=== PATIENT | male | born 1960 | race Hispanic/Latino ===

== ENCOUNTER 2018-12-02 11:26 | Inpatient (IN) | payer OTHER ==
--- NOTE | 2018-12-02 11:47 | Emergency Department Report ---
Chief Complaint: Dyspnea/Respdistress Stated Complaint: COPD/SWELLING/PAIN Time Seen by Provider: 12/02/18 11:45 - HPI History of Present Illness: states her doctor sent her here to be admitted. states he called ER "Dr Rios" co cp rad to neck see EMR for hx pt is complaining about a nurse with no EDWARD VSS MSE completed MSE screening note: Focused history and physical exam performed. Due to findings the following was ordered: ED Disposition for MSE Condition: Stable
--- NOTE | 2018-12-02 12:26 | XRay Report ---
ROUTINE CHEST, TWO VIEWS: HISTORY: chest pain. Moderate cardiomegaly and mild pulmonary venous congestion are identified which appear relatively stable since 03/07/17. No evidence for consolidation, large pleural effusion or pneumothorax. The bony structures are grossly intact. IMPRESSION: Cardiomegaly and pulmonary venous congestion. No overwhelming change since 03/07/17.
--- NOTE | 2018-12-02 12:41 | Emergency Department Report ---
ED General Adult HPI - General Chief complaint: Dyspnea/Respdistress Stated complaint: COPD/SWELLING/PAIN Time Seen by Provider: 12/02/18 11:45 Source: patient, RN notes reviewed, old records reviewed Mode of arrival: Wheelchair Limitations: No Limitations - History of Present Illness Initial comments: This is a 58-year-old gentleman. Primary care Dr.: Dr Santiago Does not have a local process improvement specialist. Past medical history: Obesity, diabetes, renal insufficiency, permanent atrial fibrillation, on systemic anticoagulation; xarelto This is a pleasant 58-year-old gentleman who is not known to this provider previously. The patient presents to the emergency room with a complaint of unintentional lower extremity swelling, scrotal swelling, shortness of breath, "I think I'm fluid overloaded." He endorses an unintentional 40 pound weight gain within the past month or so. The patient is a truck loader, however he endorses compliance with his systemic anticoagulation. He denies headache, neck pain, chest pain, abdominal pain. He believes that he is constipated. He also reports that his symptoms got worse approximately 2-3 weeks ago, after receiving an intragluteal injection, on the right side, for "low testosterone." -: Gradual Location: left, right, lower extremity Severity scale (0 -10): 6 Consistency: constant Improves with: rest Worsens with: movement Associated Symptoms: shortness of breath. denies: chest pain - Related Data Home Medications Medication Instructions Recorded Confirmed Last Taken Albuterol Sulfate [Ventolin HFA] 2 puff INHALATION PRN 01/16/17 03/07/17 01/15/17 AtorvaSTATin [Lipitor] 10 mg PO HS 01/16/17 03/07/17 01/15/17 Rivaroxaban [Xarelto] 20 mg PO QDAY 01/16/17 03/07/17 01/15/17 Zolpidem [Ambien] 10 mg PO QHS 01/16/17 03/07/17 01/15/17 amLODIPine [Norvasc] 1 tab PO DAILY 01/16/17 03/07/17 Unknown Spironolactone [Aldactone] 50 mg PO QDAY 03/07/17 03/07/17 Unknown Previous Rx's Medication Instructions Recorded Last Taken Type Detemir (Nf) [Levemir (Nf)] 12 units SUB-Q QHS #30 units 01/18/17 Unknown Rx Carvedilol [Coreg] 3.125 mg PO BID #60 tablet 03/08/17 Unknown Rx HYDROcodone/APAP 10-325 [[place] 2 tab PO TID PRN #14 tablet 03/08/17 Unknown Rx 10-325 mg TAB] Nicotine [Habitrol] 21 mg TD QDAY #14 patch 03/08/17 Unknown Rx Torsemide [Demadex] 50 mg PO QDAY 30 Days tablet 03/09/17 Unknown Rx Allergies Allergy/AdvReac Type Severity Reaction Status Date / Time Penicillins Allergy Rash Verified 01/16/17 08:30 ED Review of Systems ROS: Stated complaint: COPD/SWELLING/PAIN Other details as noted in HPI Constitutional: denies: fever Eyes: denies: vision change ENT: denies: epistaxis Respiratory: shortness of breath Cardiovascular: dyspnea on exertion, edema. denies: chest pain, orthopnea Gastrointestinal: constipation. denies: abdominal pain Skin: lesions (chronic skin lesion secondary to long-term anticoagulant use) Neurological: weakness Psychiatric: denies: anxiety ED Past Medical Hx - Past Medical History Hx Hypertension: Yes Hx Congestive Heart Failure: Yes Hx Diabetes: Yes Hx Arthritis: Yes Hx COPD: Yes Additional medical history: Back pain, Kidney insufficiency, Home oxygen, A fib - Surgical History Past Surgical History?: No - Social History Smoking Status: Unknown if ever smoked Substance Use Type: None - Medications Home Medications: Home Medications Medication Instructions Recorded Confirmed Last Taken Type Albuterol Sulfate [Ventolin HFA] 2 puff INHALATION PRN 01/16/17 03/07/17 01/15/17 History AtorvaSTATin [Lipitor] 10 mg PO HS 01/16/17 03/07/17 01/15/17 History Rivaroxaban [Xarelto] 20 mg PO QDAY 01/16/17 03/07/17 01/15/17 History Zolpidem [Ambien] 10 mg PO QHS 01/16/17 03/07/17 01/15/17 History amLODIPine [Norvasc] 1 tab PO DAILY 01/16/17 03/07/17 Unknown History Detemir (Nf) [Levemir (Nf)] 12 units SUB-Q QHS #30 units 01/18/17 03/07/17 Unknown Rx Spironolactone [Aldactone] 50 mg PO QDAY 03/07/17 03/07/17 Unknown History Carvedilol [Coreg] 3.125 mg PO BID #60 tablet 03/08/17 Unknown Rx HYDROcodone/APAP 10-325 [[place] 2 tab PO TID PRN #14 tablet 03/08/17 Unknown Rx 10-325 mg TAB] Nicotine [Habitrol] 21 mg TD QDAY #14 patch 03/08/17 Unknown Rx Torsemide [Demadex] 50 mg PO QDAY 30 Days tablet 03/09/17 Unknown Rx ED Physical Exam - General Limitations: No Limitations General appearance: alert, in no apparent distress, obese - Head Head exam: Present: atraumatic, normocephalic - Eye Eye exam: Present: normal appearance, EOMI. Absent: nystagmus - ENT ENT exam: Present: normal exam, normal orophraynx, mucous membranes moist, normal external ear exam - Neck Neck exam: Present: normal inspection, full ROM. Absent: tenderness, meningismus - Respiratory Respiratory exam: Present: rales, rhonchi. Absent: respiratory distress - Cardiovascular Cardiovascular Exam: Present: tachycardia, irregular rhythm, normal heart sounds. Absent: systolic murmur, diastolic murmur, rubs, gallop - GI/Abdominal GI/Abdominal exam: Present: soft. Absent: distended, tenderness, guarding, rebound, rigid, pulsatile mass - Rectal Rectal exam: Present: deferred - exam: Present: scrotal swelling - Extremities Exam Extremities exam: Present: normal inspection (chronic discoloration noted), pedal edema (3+ pulses noted in the lower extremities), other (2+ pulses noted in the bilateral upper, lower extremities. Compartments soft. No long bony tenderness. The pelvis is stable.). Absent: calf tenderness - Back Exam Back exam: Present: normal inspection, full ROM. Absent: tenderness, CVA tenderness (R), paraspinal tenderness, vertebral tenderness - Neurological Exam Neurological exam: Present: alert, oriented X3, CN II-XII intact, normal gait, other (Extraocular movements intact. Tongue midline. No facial droop. Facial sensation intact to light touch in the V1, V2, V3 distribution bilaterally. 5 and 5 strength in 4 extremities.. Sensation is intact to light touch in 4 extremities.). Absent: motor sensory deficit - Psychiatric Psychiatric exam: Present: normal affect, normal mood - Skin Skin exam: Present: warm, dry, intact, normal color. Absent: rash ED Course Vital Signs 12/02/18 12/02/18 12/02/18 11:58 12:51 13:00 Temperature 98.2 F Pulse Rate 103 H 73 Respiratory 24 20 Rate Blood Pressure 135/70 115/57 O2 Sat by Pulse 81 L 93 93 Oximetry ED Medical Decision Making - Lab Data Result diagrams: 12/02/18 12:45 12/02/18 12:45 Vital Signs 12/02/18 12/02/18 12/02/18 11:58 12:51 13:00 Temperature 98.2 F Pulse Rate 103 H 73 Respiratory 24 20 Rate Blood Pressure 135/70 115/57 O2 Sat by Pulse 81 L 93 93 Oximetry Lab Results 12/02/18 12/02/18 12/02/18 Range/Units 12:35 12:45 12:45 WBC 5.9 (4.5-11.0) K/mm3 RBC 6.50 H (3.65-5.03) M/mm3 Hgb 16.9 H (11.8-15.2) gm/dl Hct 54.6 H (35.5-45.6) % MCV 84 (84-94) fl MCH 26 L (28-32) pg MCHC 31 L (32-34) % RDW 19.5 H (13.2-15.2) % Plt Count 152 (140-440) K/mm3 Lymph % (Auto) 20.1 (13.4-35.0) % [place] % (Auto) 14.0 H (0.0-7.3) % Eos % (Auto) 1.3 (0.0-4.3) % Baso % (Auto) 0.9 (0.0-1.8) % Lymph # 1.2 (1.2-5.4) K/mm3 [place] # 0.8 (0.0-0.8) K/mm3 Eos # 0.1 (0.0-0.4) K/mm3 Baso # 0.1 (0.0-0.1) K/mm3 Seg Neutrophils % 63.7 (40.0-70.0) % Seg Neutrophils # 3.7 (1.8-7.7) K/mm3 PT (12.2-14.9) Sec. INR (0.87-1.13) Sodium 136 L (137-145) mmol/L Potassium 5.1 H (3.6-5.0) mmol/L Chloride 94.0 L (98-107) mmol/L Carbon Dioxide 29 (22-30) mmol/L Anion Gap 18 mmol/L BUN 57 H (9-20) mg/dL Creatinine 1.9 H (0.8-1.5) mg/dL Estimated GFR 37 ml/min BUN/Creatinine Ratio 30 % Glucose 199 H (75-100) mg/dL POC Glucose (70-105) Calcium 8.8 (8.4-10.2) mg/dL Magnesium 2.20 (1.7-2.3) mg/dL Total Bilirubin 0.60 (0.1-1.2) mg/dL AST 19 (5-40) units/L ALT 13 (7-56) units/L Alkaline Phosphatase 63 (35-129) units/L Troponin T < 0.010 (0.00-0.029) ng/mL NT-Pro-B Natriuret Pep 3763 H (0-900) pg/mL Total Protein 6.1 L (6.3-8.2) g/dL Albumin 3.1 L (3.9-5) g/dL Albumin/Globulin Ratio 1.0 % Urine Color Yellow (Yellow) Urine Turbidity Clear (Clear) Urine pH 5.0 (5.0-7.0) Ur Specific [place] 1.013 (1.003-1.030) Urine Protein >2000 mg dl (Negative) mg/dL Urine Glucose (UA) Neg (Negative) mg/dL Urine Ketones Neg (Negative) mg/dL Urine Blood Neg (Negative) Urine Nitrite Neg (Negative) Urine Bilirubin Neg (Negative) Urine Urobilinogen 2.0 (<2.0) mg/dL Ur Leukocyte Esterase Neg (Negative) Urine WBC (Auto) 1.0 (0.0-6.0) /HPF Urine RBC (Auto) 3.0 (0.0-6.0) /HPF U Epithel Cells (Auto) < 1.0 (0-13.0) /HPF Urine Mucus Few /HPF 12/02/18 12/02/18 Range/Units 12:45 13:35 WBC (4.5-11.0) K/mm3 RBC (3.65-5.03) M/mm3 Hgb (11.8-15.2) gm/dl Hct (35.5-45.6) % MCV (84-94) fl MCH (28-32) pg MCHC (32-34) % RDW (13.2-15.2) % Plt Count (140-440) K/mm3 Lymph % (Auto) (13.4-35.0) % [place] % (Auto) (0.0-7.3) % Eos % (Auto) (0.0-4.3) % Baso % (Auto) (0.0-1.8) % Lymph # (1.2-5.4) K/mm3 [place] # (0.0-0.8) K/mm3 Eos # (0.0-0.4) K/mm3 Baso # (0.0-0.1) K/mm3 Seg Neutrophils % (40.0-70.0) % Seg Neutrophils # (1.8-7.7) K/mm3 PT 14.2 (12.2-14.9) Sec. INR 1.04 (0.87-1.13) Sodium (137-145) mmol/L Potassium (3.6-5.0) mmol/L Chloride (98-107) mmol/L Carbon Dioxide (22-30) mmol/L Anion Gap mmol/L BUN (9-20) mg/dL Creatinine (0.8-1.5) mg/dL Estimated GFR ml/min BUN/Creatinine Ratio % Glucose (75-100) mg/dL POC Glucose 186 H (70-105) Calcium (8.4-10.2) mg/dL Magnesium (1.7-2.3) mg/dL Total Bilirubin (0.1-1.2) mg/dL AST (5-40) units/L ALT (7-56) units/L Alkaline Phosphatase (35-129) units/L Troponin T (0.00-0.029) ng/mL NT-Pro-B Natriuret Pep (0-900) pg/mL Total Protein (6.3-8.2) g/dL Albumin (3.9-5) g/dL Albumin/Globulin Ratio % Urine Color (Yellow) Urine Turbidity (Clear) Urine pH (5.0-7.0) Ur Specific [place] (1.003-1.030) Urine Protein (Negative) mg/dL Urine Glucose (UA) (Negative) mg/dL Urine Ketones (Negative) mg/dL Urine Blood (Negative) Urine Nitrite (Negative) Urine Bilirubin (Negative) Urine Urobilinogen (<2.0) mg/dL Ur Leukocyte Esterase (Negative) Urine WBC (Auto) (0.0-6.0) /HPF Urine RBC (Auto) (0.0-6.0) /HPF U Epithel Cells (Auto) (0-13.0) /HPF Urine Mucus /HPF - EKG Data -: EKG Interpreted by Me Rate: tachycardia - EKG Data 12/02/18 13:35 Normal axis, atrial fibrillation, normal intervals, low voltage, motion artifact, not consistent with ST elevation myocardial infarction. - Radiology Data Radiology results: pending, report reviewed, image reviewed interpreted by me: X-ray of the chest shows pulmonary vascular congestion - Medical Decision Making Differential diagnosis, including but not limited to: Cardiorenal syndrome, congestive heart failure, fluid overload Assessment and plan: 38-year-old gentleman with history and physical suggestive of congestive heart failure exacerbation, and fluid overload. While I am talking to the patient, he is saturating at 90-92% on supplemental oxygen. He is on systemic anticoagulation, and endorses no pulmonary embolus or DVT risk factors. He will be treated with supplemental oxygen, supportive care, and aggressive IV diuresis. I have recommended diet last somewhat occasions to the patient, an aggressive weight loss. He is amenable to hospitalization. Hospital physician, Dr. Sumner has graciously accepted the patient to the medical service for decompensated congestive heart failure. Critical Care Time: Yes Critical care time in (mins) excluding proc time.: 35 Critical care attestation.: If time is entered above; I have spent that time in minutes in the direct care o f this critically ill patient, excluding procedure time. ED Disposition Clinical Impression: Chronic atrial fibrillation, Permanent atrial fibrillation, O2 dependent, Anticoagulant long-term use, Morbid obesity, Acute exacerbation of CHF (congestive heart failure) Disposition: OP ADMIT IP TO THIS HOSP Is pt being admited?: Yes Condition: Good Referrals: PRIMARY CARE, [Referring] - 3-5 Days
[2018-12-02 12:59] LABS: Basophils # (Auto) 0.1 K/mm3 (0.0-0.1); Basophils % (Auto) 0.9 % (0.0-1.8); Eosinophils # (Auto) 0.1 K/mm3 (0.0-0.4); Eosinophils % (Auto) 1.3 % (0.0-4.3); Lymphocytes # (Auto) 1.2 K/mm3 (1.2-5.4); Lymphocytes % (Auto) 20.1 % (13.4-35.0); Mean Corpuscular HGB Conc 31 % (32-34); Mean Corpuscular Hemoglobin 26 pg (28-32); Mean Corpuscular Volume 84 fl (84-94); Monocytes # (Auto) 0.8 K/mm3 (0.0-0.8); Platelet Count 152 K/mm3 (140-440); Red Cell Distribution Width 19.5 % (13.2-15.2)
[2018-12-02 13:05] LABS: Hematocrit 54.6 % (35.5-45.6); Hemoglobin 16.9 gm/dl (11.8-15.2)
[2018-12-02 13:14] LABS: INR 1.04 (0.87-1.13)
[2018-12-02 13:22] LABS: Bilirubin,Urine NEG (Negative); Blood,Urine NEG (Negative); Color,Urine Yellow (Yellow); Mucus,Urine FEW /HPF; Protein,Urine >2000 mg dL mg/dL (Negative)
[2018-12-02 13:27] LABS: Alanine Aminotransferase 13 units/L (7-56); Albumin 3.1 g/dL (3.9-5); BUN/Creatinine Ratio 30; Blood Urea Nitrogen 57 mg/dL (9-20); Calcium 8.8 mg/dL (8.4-10.2); Hemolysis Index 54
[2018-12-02] MEDS ORDERED: LASIX IV ONE (13:31)
--- NOTE | 2018-12-02 13:33 | History and Physical Report ---
History of Present Illness Chief complaint: I feel bloated, short of breath and im constipated too. History of present illness: 58 YO Male with MO, DM, Renal Failure, Atrial Fib on Therapeutic Anticoatulation(Xarelto), CHF, Nicotine Dependence presents to ED for evaluation. Pt states that he has experienced shortness of breath over the past 1 month, with worsening symptoms over the past 2 weeks. Pt acknowledges 40lbs weight gain over the past 1 month, dypsnea on exertion, dypsnea at rest, leg edema, Orthopnea/PND, decreased exercise tolerance, as well as shortness of breath. Pt also acknowledge constipation over the past 4 days. Pt transported to [facility] by private vehicle. Pt seen and evalauted in ED and found to have symptoms consistent with CHF Decompensation as well as Renal failure. Pt denies fever, chills, chest pain, palpitation, abdominal pain, hematochezia, prolonged travel/immobility, unilateral leg swelling, calf pain, dysuria, frequency, individual/family history of DVT/PE/Blood Clotting Disorders, focal weakness, dysarthria. Pt admitted to telemetry and initiated on CHF protocol. Cardiology consulted in ED. Nephrology consulted in ED. Admission on 03/07/17 reviewed. All listed medication reconciled at time of admission. Past History Past Medical History: atrial fib, diabetes, heart failure, renal failure Past Surgical History: No surgical history, Other (reviewed) Social history: single, smoking. denies: alcohol abuse, prescription drug abuse Family history: hypertension Medications and Allergies Allergies Allergy/AdvReac Type Severity Reaction Status Date / Time Penicillins Allergy Rash Verified 01/16/17 08:30 Home Medications Medication Instructions Recorded Confirmed Last Taken Type AtorvaSTATin [Lipitor] 10 mg PO HS 01/16/17 12/02/18 01/15/17 History Rivaroxaban [Xarelto] 20 mg PO QDAY 01/16/17 12/02/18 01/15/17 History Carvedilol [Coreg] 3.125 mg PO BID #60 tablet 03/08/17 12/02/18 Unknown Rx Digoxin [Digox] 250 mcg PO DAILY 12/02/18 12/02/18 Unknown History Insulin Detemir [Levemir VIAL] 20 unit SQ QHS 12/02/18 12/02/18 Unknown History Ipratropium/Albuterol Sulfate 1 spray IH QID 12/02/18 12/02/18 Unknown History [Combivent Respimat] Lispro Insulin [Humalog] 8 unit SQ AC 12/02/18 12/02/18 Unknown History Rivaroxaban [Xarelto] 20 mg PO QDAY 12/02/18 12/02/18 Unknown History Spironolactone [Aldactone] 25 mg PO QDAY 12/02/18 12/02/18 Unknown History Torsemide [Demadex] 20 mg PO DAILY 12/02/18 12/02/18 Unknown History metOLazone [Metolazone] 5 mg PO DAILY 12/02/18 12/02/18 Unknown History predniSONE [Deltasone] 20 mg PO QDAY 12/02/18 12/02/18 Unknown History Review of Systems Constitutional: weight gain, no weight loss, no fever, no chills, no sweats, no night sweats Ears, nose, mouth and throat: no ear pain, no ear discharge, no tinnitis, no decreased hearing, no nose pain Cardiovascular: orthopnea, edema, shortness of breath, dyspnea on exertion, paroxysmal nocturnal dyspnea, leg edema, decreased exercise tolerance, no chest pain Respiratory: no cough, no cough with sputum, no excessive sputum Gastrointestinal: constipation, no abdominal pain, no nausea, no vomiting, no di arrhea Genitourinary Male: no dysuria, no hematuria, no flank pain, no urinary frequency, no urinary hesitancy Rectal: no pain, no incontinence, no bleeding Musculoskeletal: no neck stiffness, no neck pain, no shooting arm pain, no arm numbness/tingling, no low back pain, no shooting leg pain, no redness of joints Integumentary: no rash, no pruritis, no redness, no sores, no wounds Neurological: no head injury, no transient paralysis, no paralysis, no weakness, no parathesias, no tremors Psychiatric: no anxiety, no memory loss, no change in appetite, no change in libido, no disorientation Endocrine: no cold intolerance, no heat intolerance, no polyphagia, no excessive thirst, no polydipsia, no polyuria Hematologic/Lymphatic: no easy bruising, no easy bleeding, no lymphadenopathy Allergic/Immunologic: no urticaria, no allergic rhinitis, no anaphylaxis Exam - Constitutional Vitals: Temp Pulse Resp BP Pulse Ox 98.2 F 73 20 115/57 93 12/02/18 11:58 12/02/18 13:00 12/02/18 13:00 12/02/18 13:00 12/02/18 13:00 General appearance: Present: mild distress, obese - EENT Eyes: Present: PERRL ENT: hearing intact, clear oral mucosa - Neck Neck: Present: supple, normal ROM - Respiratory Respiratory effort: labored Respiratory: bilateral: diminished, rhonchi - Cardiovascular Rhythm: irregularly irregular Heart Sounds: Present: S1 & S2. Absent: rub, click - Extremities Extremity abnormal: edema Peripheral Pulses: within normal limits - Abdominal General gastrointestinal: Present: soft, non-tender, non-distended, normal bowel sounds Male genitourinary: Present: normal - Integumentary Integumentary: Present: clear, warm, dry - Musculoskeletal Musculoskeletal: gait normal, strength equal bilaterally - Psychiatric Psychiatric: appropriate mood/affect, intact judgment & insight - Neurologic Neurologic: CNII-XII intact, moves all extremities Results - Labs CBC & Chem 7: 12/02/18 12:45 12/02/18 12:45 Labs: Abnormal lab results 12/02/18 12/02/18 12/02/18 Range/Units 12:45 12:45 13:35 RBC 6.50 H (3.65-5.03) M/mm3 Hgb 16.9 H (11.8-15.2) gm/dl Hct 54.6 H (35.5-45.6) % MCH 26 L (28-32) pg MCHC 31 L (32-34) % RDW 19.5 H (13.2-15.2) % [place] % (Auto) 14.0 H (0.0-7.3) % Sodium 136 L (137-145) mmol/L Potassium 5.1 H (3.6-5.0) mmol/L Chloride 94.0 L (98-107) mmol/L BUN 57 H (9-20) mg/dL Creatinine 1.9 H (0.8-1.5) mg/dL Glucose 199 H (75-100) mg/dL POC Glucose 186 H (70-105) NT-Pro-B Natriuret Pep 3763 H (0-900) pg/mL Total Protein 6.1 L (6.3-8.2) g/dL Albumin 3.1 L (3.9-5) g/dL Assessment and Plan - Patient Problems (1) Acute exacerbation of CHF (congestive heart failure) Current Visit: Yes Status: Suspected Qualifiers: Heart failure type: systolic Qualified Code(s): I50.23 - Acute on chronic systolic (congestive) heart failure Plan to address problem: Admit to telemetry, Cardiology consulted in ED, digoxin level, thyroid panel, Echo, strict I/O, daily weight, afterload reduction, monitor for negative fluid balance, chest x ray, supplemental oxygen, BNP. (2) Nicotine dependence with withdrawal Current Visit: Yes Status: Acute Qualifiers: Nicotine product type: cigarettes Qualified Code(s): F17.213 - Nicotine dependence, cigarettes, with withdrawal Plan to address problem: Smoking cessation counseling, supportive care. (3) ARF (acute renal failure) with tubular necrosis Current Visit: Yes Status: Acute Plan to address problem: IVF resuscitation therapy as tolerated, Nephrology consulted in ED. monitor uop q shift, (4) A-fib Current Visit: No Status: Acute Qualifiers: Atrial fibrillation type: persistent Qualified Code(s): I48.1 - Persistent atrial fibrillation Plan to address problem: Admit to telemetry, cardiology consulted, rate controlled, continue therapeutic anticoagulation, (5) Diabetes Current Visit: No Status: Acute Plan to address problem: ADA diet, insulin, accu check, hgb A1c (6) Constipation Current Visit: Yes Status: Acute Qualifiers: Constipation type: unspecified constipation type Qualified Code(s): K59.00 - Constipation, unspecified Plan to address problem: Bowel regimen, IVF resuscitation therapy as tolerated. (7) DVT prophylaxis Current Visit: Yes Status: Acute Plan to address problem: SCD to BLE while in bed, therapeutic oral anticoagulation.
[2018-12-02] MEDS ORDERED: ZOFRAN IV PRN (13:39)
[2018-12-02] MEDS ORDERED: PROVENTIL IH PRN (13:39)
[2018-12-02] MEDS ORDERED: SODIUM CHLORIDE FLUSH SYRINGE 10 ML IV PRN (13:39)
[2018-12-02] MEDS ORDERED: D50W (25GM) Syringe IV PRN (13:52)
[2018-12-02] MEDS ORDERED: SENOKOT S PO PRN (14:27)
[2018-12-02] MEDS ORDERED: DULCOLAX PO PRN (14:28)
[2018-12-02 16:29] LABS: Free T4 (Free Thyroxine) 1.15 ng/dL (0.76-1.46)
[2018-12-02] MEDS ORDERED: HumaLOG SUB-Q ONE (16:35)
[2018-12-02] MEDS: HumaLOG SUB-Q SCH ×2 (16:41→22:03)
[2018-12-02] MEDS: LASIX PO SCH (21:45)
[2018-12-02] MEDS: COREG PO SCH (22:02)
[2018-12-02] MEDS: SODIUM CHLORIDE FLUSH SYRINGE 10 ML IV SCH (22:04)
[2018-12-03 06:15] LABS: Calcium 8.9 mg/dL (8.4-10.2)
[2018-12-03] MEDS: LASIX PO SCH (06:59)
[2018-12-03] MEDS: HumaLOG SUB-Q SCH ×4 (07:51→21:56)
[2018-12-03] MEDS ORDERED: DEMADEX PO SCH (10:00)
[2018-12-03] MEDS ORDERED: NON-FORMULARY (Torsemide [Demadex] 20 MG) PO SCH (10:00)
[2018-12-03] MEDS: LANOXIN PO SCH (12:48)
[2018-12-03] MEDS: XARELTO PO SCH (12:48)
[2018-12-03] MEDS: DELTASONE PO SCH (12:48)
[2018-12-03] MEDS: ALDACTONE PO SCH (12:50)
[2018-12-03] MEDS: COREG PO SCH ×2 (12:50→21:19)
[2018-12-03] MEDS: ZAROXOLYN PO SCH (12:51)
[2018-12-03] MEDS: SODIUM CHLORIDE FLUSH SYRINGE 10 ML IV SCH ×2 (12:51→21:20)
--- NOTE | 2018-12-03 13:01 | Consultation ---
History of Present Illness - Reason for Consult Consult date: 12/03/18 acute renal failure, chronic renal failure - History of Present Illness the patient with CKD due to DM and HTN came to the ED last night due to wroseening swelling and water weight gain, he stated he has been on Torsemide 10 0 mg once a day which was decreased about a year ago to 50 mg, and few weeks ago it was decreased to 40 mg once a day, slowly since then he started to have worsening swelling and weight gain about 40-50 lb, he is also mentioning worsening of SOB. renal consulted for CKD management Past History Past Medical History: atrial fib, diabetes, heart failure, renal failure Past Surgical History: No surgical history, Other (reviewed) Social history: single, smoking. denies: alcohol abuse, prescription drug abuse Family history: hypertension Medications and Allergies Allergies Allergy/AdvReac Type Severity Reaction Status Date / Time Penicillins Allergy Rash Verified 01/16/17 08:30 Home Medications Medication Instructions Recorded Confirmed Last Taken Type AtorvaSTATin [Lipitor] 10 mg PO HS 01/16/17 12/02/18 01/15/17 History Rivaroxaban [Xarelto] 20 mg PO QDAY 01/16/17 12/02/18 01/15/17 History Carvedilol [Coreg] 3.125 mg PO BID #60 tablet 03/08/17 12/02/18 Unknown Rx Digoxin [Digox] 250 mcg PO DAILY 12/02/18 12/02/18 Unknown History Insulin Detemir [Levemir VIAL] 20 unit SQ QHS 12/02/18 12/02/18 Unknown History Ipratropium/Albuterol Sulfate 1 spray IH QID 12/02/18 12/02/18 Unknown History [Combivent Respimat] Lispro Insulin [Humalog] 8 unit SQ AC 12/02/18 12/02/18 Unknown History Rivaroxaban [Xarelto] 20 mg PO QDAY 12/02/18 12/02/18 Unknown History Spironolactone [Aldactone] 25 mg PO QDAY 12/02/18 12/02/18 Unknown History Torsemide [Demadex] 20 mg PO DAILY 12/02/18 12/02/18 Unknown History metOLazone [Metolazone] 5 mg PO DAILY 12/02/18 12/02/18 Unknown History predniSONE [Deltasone] 20 mg PO QDAY 12/02/18 12/02/18 Unknown History Active Meds: Active Medications Acetaminophen (Tylenol) 650 mg PO Q4H PRN PRN Reason: Pain MILD(1-3)/Fever >100.5/RIBERA Albuterol (Proventil) 2.5 mg IH Q4HRT PRN PRN Reason: Shortness Of Breath Atorvastatin Calcium (Lipitor) 10 mg PO [facility] Last Admin: 12/02/18 21:45 Dose: 10 mg Documented by: Bisacodyl (Dulcolax) 5 mg PO QDAY PRN PRN Reason: Constipation Stop: 12/04/18 23:59 Carvedilol (Coreg) 3.125 mg PO BID [facility] Last Admin: 12/03/18 12:50 Dose: Not Given Documented by: Dextrose (D50w (25gm) Syringe) 50 ml IV PRN PRN PRN Reason: Hypoglycemia Digoxin (Lanoxin) 0.25 mg PO DAILY [facility] Last Admin: 12/03/18 12:48 Dose: 0.25 mg Documented by: Furosemide (Lasix) 40 mg IV BID [facility] Insulin Human Lispro (Humalog) 0 unit SUB-Q ACHS [facility]; Protocol Last Admin: 12/03/18 12:50 Dose: 2 unit Documented by: Metolazone (Zaroxolyn) 5 mg PO DAILY [facility] Last Admin: 12/03/18 12:51 Dose: Not Given Documented by: Ondansetron HCl (Zofran) 4 mg IV Q8H PRN PRN Reason: Nausea And Vomiting Prednisone (Deltasone) 20 mg PO QDAY [facility] Last Admin: 12/03/18 12:48 Dose: 20 mg Documented by: Rivaroxaban (Xarelto) 20 mg PO QDAY [facility]; Protocol Last Admin: 12/03/18 12:48 Dose: 20 mg Documented by: Senna/Docusate Sodium (Senokot S) 2 tab PO Q12H PRN PRN Reason: Laxative Effect Sodium Chloride (Sodium Chloride Flush Syringe 10 Ml) 10 ml IV BID [facility] Last Admin: 12/03/18 12:51 Dose: 10 ml Documented by: Sodium Chloride (Sodium Chloride Flush Syringe 10 Ml) 10 ml IV PRN PRN PRN Reason: LINE FLUSH Spironolactone (Aldactone) 25 mg PO QDAY EDELMIRA Last Admin: 12/03/18 12:50 Dose: Not Given Documented by: Review of Systems All systems: negative (weight gaib, swelling, SOB) Exam - Vital Signs Vital signs: Vital Signs Temp Pulse Resp BP Pulse Ox 98.2 F 103 H 24 135/70 81 L 12/02/18 11:58 12/02/18 11:58 12/02/18 11:58 12/02/18 11:58 12/02/18 11:58 - General Appearance General appearance: well-developed, well-nourished, appears stated age, obese EENT: ATNC, PERRL, mucous membranes moist Neck: Present: neck supple Respiratory: Clear to Ascultation, Decreased Breath Sounds Heart: regular, S1S2 Gastrointestinal: Present: normoactive bowel sounds. Absent: tenderness, distended Integumentary: no rash, warm and dry Neurologic: no focal deficit, no asterixis, alert and oriented x3 Musculoskeletal: Present: other (Anasarca) Psychiatric: mood/affect appropriate, cooperative Results - Lab Results 12/02/18 12:45 12/03/18 04:54 Most recent lab results Calcium 8.9 mg/dL (8.4-10.2) 12/03/18 04:54 Magnesium 2.20 mg/dL (1.7-2.3) 12/02/18 12:45 Assessment and Plan Chronic kidney disease secondary to DM and HTN Anasacra secondary to CHF and CKD DM type II on insulin HTN - Cr baseline from 2017 was 1.9, appears to be stable, noted to have prote inuria, which is chronic and 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 Remi Torres MD [phone]
--- NOTE | 2018-12-03 13:34 | Consultation ---
History of Present Illness Consult date: 12/03/18 Requesting physician: VALENCIA DINERO Consult reason: congestive heart failure History of present illness: The pt is a 58 YO male with a past medical history significant for permanent atrial fibrillation for which he is on Xarelto, HTN, HLP, DM, CKD, COPD, chronic respiratory failure requiring home O2 (wears 2-3L), DHF, pulmonary HTN, chronic BLE edema, tobacco use. He was last seen by Dr. Fox in our office in 03/2017. He presented with c/o SOB, DANIEL, PND, orthopea, BLE and scrotal edema x several days [employer]. He denies any chest pain, palpitations, n/v, diaphoresis, dizziness or syncope. He reports compliance with his home medication regimen. Echo done 04/2016 showed EF 55-60%, abnormal diastolic function, mild LVH, LA mod dilated, RA mod dilated, RV mod dilated, mild MR, mod TR, severe pulm HTN with RVSP 97mmHg. Past History Past Medical History: atrial fib, COPD, diabetes, heart failure, hypertension, hyperlipidemia Social history: single, smoking. denies: alcohol abuse, prescription drug abuse Family history: hypertension Medications and Allergies Allergies Allergy/AdvReac Type Severity Reaction Status Date / Time Penicillins Allergy Rash Verified 01/16/17 08:30 Home Medications Medication Instructions Recorded Confirmed Last Taken Type AtorvaSTATin [Lipitor] 10 mg PO HS 01/16/17 12/02/18 01/15/17 History Rivaroxaban [Xarelto] 20 mg PO QDAY 01/16/17 12/02/18 01/15/17 History Carvedilol [Coreg] 3.125 mg PO BID #60 tablet 03/08/17 12/02/18 Unknown Rx Digoxin [Digox] 250 mcg PO DAILY 12/02/18 12/02/18 Unknown History Insulin Detemir [Levemir VIAL] 20 unit SQ QHS 12/02/18 12/02/18 Unknown History Ipratropium/Albuterol Sulfate 1 spray IH QID 12/02/18 12/02/18 Unknown History [Combivent Respimat] Lispro Insulin [Humalog] 8 unit SQ AC 12/02/18 12/02/18 Unknown History Rivaroxaban [Xarelto] 20 mg PO QDAY 12/02/18 12/02/18 Unknown History Spironolactone [Aldactone] 25 mg PO QDAY 12/02/18 12/02/18 Unknown History Torsemide [Demadex] 20 mg PO DAILY 12/02/18 12/02/18 Unknown History metOLazone [Metolazone] 5 mg PO DAILY 12/02/18 12/02/18 Unknown History predniSONE [Deltasone] 20 mg PO QDAY 12/02/18 12/02/18 Unknown History Active Meds: Active Medications Acetaminophen (Tylenol) 650 mg PO Q4H PRN PRN Reason: Pain MILD(1-3)/Fever >100.5/RIBERA Albuterol (Proventil) 2.5 mg IH Q4HRT PRN PRN Reason: Shortness Of Breath Atorvastatin Calcium (Lipitor) 10 mg PO HS [facility] Last Admin: 12/02/18 21:45 Dose: 10 mg Documented by: Bisacodyl (Dulcolax) 5 mg PO QDAY PRN PRN Reason: Constipation Stop: 12/04/18 23:59 Carvedilol (Coreg) 3.125 mg PO BID [facility] Last Admin: 12/03/18 12:50 Dose: Not Given Documented by: Dextrose (D50w (25gm) Syringe) 50 ml IV PRN PRN PRN Reason: Hypoglycemia Digoxin (Lanoxin) 0.25 mg PO DAILY [facility] Last Admin: 12/03/18 12:48 Dose: 0.25 mg Documented by: Furosemide (Lasix) 40 mg IV BID [facility] Insulin Human Lispro (Humalog) 0 unit SUB-Q ACHS [facility]; Protocol Last Admin: 12/03/18 12:50 Dose: 2 unit Documented by: Metolazone (Zaroxolyn) 5 mg PO DAILY [facility] Last Admin: 12/03/18 12:51 Dose: Not Given Documented by: Ondansetron HCl (Zofran) 4 mg IV Q8H PRN PRN Reason: Nausea And Vomiting Prednisone (Deltasone) 20 mg PO QDAY [facility] Last Admin: 12/03/18 12:48 Dose: 20 mg Documented by: Rivaroxaban (Xarelto) 20 mg PO QDAY [facility]; Protocol Last Admin: 12/03/18 12:48 Dose: 20 mg Documented by: Senna/Docusate Sodium (Senokot S) 2 tab PO Q12H PRN PRN Reason: Laxative Effect Sodium Chloride (Sodium Chloride Flush Syringe 10 Ml) 10 ml IV BID [facility] Last Admin: 12/03/18 12:51 Dose: 10 ml Documented by: Sodium Chloride (Sodium Chloride Flush Syringe 10 Ml) 10 ml IV PRN PRN PRN Reason: LINE FLUSH Spironolactone (Aldactone) 25 mg PO QDAY [facility] Last Admin: 12/03/18 12:50 Dose: Not Given Documented by: Review of Systems Constitutional: weight gain, no fever, no chills, no sweats Ears, nose, mouth and throat: no ear pain, no nose pain, no sinus pressure, no sinus pain Cardiovascular: orthopnea, edema, shortness of breath, dyspnea on exertion, paroxysmal nocturnal dyspnea, high blood pressure, leg edema, decreased exercise tolerance, no chest pain, no palpitations, no rapid/irregular heart beat, no syncope, no lightheadedness Respiratory: shortness of breath, dyspnea on exertion, no cough, no congestion, no wheezing, no pain on inspiration Gastrointestinal: no abdominal pain, no nausea, no vomiting, no diarrhea, no constipation, no change in bowel habits Genitourinary Male: other (scrotal swelling), no dysuria, no hematuria, no flank pain, no discharge, no urinary frequency, no urinary hesitancy Musculoskeletal: no neck stiffness, no neck pain, no shooting arm pain, no arm numbness/tingling, no low back pain, no shooting leg pain Integumentary: no wounds Neurological: no head injury, no paralysis, no weakness, no parathesias, no numbness, no tingling, no seizures, no syncope Psychiatric: no anxiety Endocrine: no cold intolerance, no heat intolerance Hematologic/Lymphatic: no easy bruising, no easy bleeding Allergic/Immunologic: no urticaria Physical Examination Vital Signs Temp Pulse Resp BP Pulse Ox 98.2 F 103 H 24 135/70 81 L 12/02/18 11:58 12/02/18 11:58 12/02/18 11:58 12/02/18 11:58 12/02/18 11:58 General appearance: no acute distress HEENT: Positive: PERRL, Normocephaly, Mucus Membranes Moist Neck: Positive: neck supple, trachea midline Cardiac: Positive: irregularly irregular, S1/S2 Lungs: Positive: Decreased Breath Sounds Neuro: Positive: Grossly Intact Abdomen: Negative: Tender Skin: Positive: Other (BLE chronic venous stasis skin changes noted). Negative: Wound Extremities: Present: +3 Edema (BLE) Results 12/02/18 12:45 12/03/18 04:54 Cardiac Enzymes 12/03/18 Range/Units 04:54 AST 11 (5-40) units/L Comprehensive Metabolic Panel 12/03/18 Range/Units 04:54 Sodium 136 L (137-145) mmol/L Potassium 4.5 (3.6-5.0) mmol/L Chloride 94.4 L (98-107) mmol/L Carbon Dioxide 33 H (22-30) mmol/L BUN 58 H (9-20) mg/dL Creatinine 1.9 H (0.8-1.5) mg/dL Glucose 117 H (75-100) mg/dL Calcium 8.9 (8.4-10.2) mg/dL AST 11 (5-40) units/L ALT 11 (7-56) units/L Alkaline Phosphatase 59 (35-129) units/L Total Protein 5.9 L (6.3-8.2) g/dL Albumin 3.0 L (3.9-5) g/dL - Imaging and Cardiology Echo: report reviewed (04/2016 showed EF 55-60%, abnormal diastolic function, mild LVH, LA mod dilated, RA mod dilated, RV mod dilated, mild MR, mod TR, severe pulm HTN with RVSP 97mmHg. ) EKG: report reviewed, image reviewed EKG interpretations - Telemetry EKG Rhythm: Atrial Fibrillation - EKG Supraventricular dysrhythmia: atrial fibrillation Assessment and Plan Agree with present cardiac management. F/u echo. The patient has been seen in conjunction with Dr. Trent Mooney who agrees with the assessment and plan of care. - Patient Problems (1) Acute heart failure with preserved ejection fraction Current Visit: Yes Status: Acute (2) COPD (chronic obstructive pulmonary disease) Current Visit: Yes Status: Chronic (3) Chronic respiratory failure Current Visit: Yes Status: Chronic (4) Severe pulmonary arterial systolic hypertension Current Visit: Yes Status: Chronic (5) CKD (chronic kidney disease) Current Visit: Yes Status: Chronic (6) Hypertension Current Visit: Yes Status: Chronic Qualifiers: Hypertension type: essential hypertension Qualified Code(s): I10 - Essential (primary) hypertension (7) Hyperlipemia Current Visit: Yes Status: Chronic (8) Diabetes mellitus Current Visit: Yes Status: Chronic Qualifiers: Diabetes mellitus type: type 2 (9) Chronic atrial fibrillation Current Visit: Yes Status: Chronic (10) Anticoagulant long-term use Current Visit: Yes Status: Chronic (11) Morbid obesity Current Visit: Yes Status: Chronic (12) Tobacco use Current Visit: Yes Status: Chronic
--- NOTE | 2018-12-03 15:13 | Progress Note ---
Assessment and Plan Assessment and plan: Acute on chronic resp failure due to CHF exacerbation. Supplemental Oxygen Acute on chronic diastolic CHF. Lasix iv Coreg, Aldactone cardiology following Acute on CKD. Monitor Nephrology on board Chronic afib Continue Xarelto DM type 2 Fingerstick glucose q ac and hs HTN Monitor BP Full code History Interval history: Less shortness of breath, No natalie pain Hospitalist Physical - Physical exam Narrative exam: GEN: Not in acute distress, sitting up in bed, morbidly obese HEENT: Normocephalic, atraumatic, Neck: supple, No JVD heart: S1 and S2 ireg,irreg, no murmurs, rubs or gallop Lungs: Bilateral basal crackles Clear to auscultation bilaterally, no wheeze Abd:soft, non tender, non distended, normal bowel sounds Ext: Bilateral lower ext edema, chronic changes, no cyanosis, Neuro:Awake,alert,oriented X 3, no focal signs, moves all ext Psych: normal mood - Constitutional Vitals: Temp Pulse Resp BP Pulse Ox 97.7 F 66 18 121/53 96 12/03/18 12:15 12/03/18 12:50 12/03/18 12:15 12/03/18 12:50 12/03/18 10:00 General appearance: Present: no acute distress Results - Labs CBC & Chem 7: 12/02/18 12:45 12/03/18 04:54 Labs: Laboratory Last Values WBC 5.9 K/mm3 (4.5-11.0) 12/02/18 12:45 RBC 6.50 M/mm3 (3.65-5.03) H 12/02/18 12:45 Hgb 16.9 gm/dl (11.8-15.2) H 12/02/18 12:45 Hct 54.6 % (35.5-45.6) H 12/02/18 12:45 MCV 84 fl (84-94) 12/02/18 12:45 MCH 26 pg (28-32) L 12/02/18 12:45 MCHC 31 % (32-34) L 12/02/18 12:45 RDW 19.5 % (13.2-15.2) H 12/02/18 12:45 Plt Count 152 K/mm3 (140-440) 12/02/18 12:45 Lymph % (Auto) 20.1 % (13.4-35.0) 12/02/18 12:45 Becker % (Auto) 14.0 % (0.0-7.3) H 12/02/18 12:45 Eos % (Auto) 1.3 % (0.0-4.3) 12/02/18 12:45 Baso % (Auto) 0.9 % (0.0-1.8) 12/02/18 12:45 Lymph # 1.2 K/mm3 (1.2-5.4) 12/02/18 12:45 Becker # 0.8 K/mm3 (0.0-0.8) 12/02/18 12:45 Eos # 0.1 K/mm3 (0.0-0.4) 12/02/18 12:45 Baso # 0.1 K/mm3 (0.0-0.1) 12/02/18 12:45 Seg Neutrophils % 63.7 % (40.0-70.0) 12/02/18 12:45 Seg Neutrophils # 3.7 K/mm3 (1.8-7.7) 12/02/18 12:45 PT 14.2 Sec. (12.2-14.9) 12/02/18 12:45 INR 1.04 (0.87-1.13) 12/02/18 12:45 Sodium 136 mmol/L (137-145) L 12/03/18 04:54 Potassium 4.5 mmol/L (3.6-5.0) 12/03/18 04:54 Chloride 94.4 mmol/L (98-107) L 12/03/18 04:54 Carbon Dioxide 33 mmol/L (22-30) H 12/03/18 04:54 Anion Gap 13 mmol/L 12/03/18 04:54 BUN 58 mg/dL (9-20) H 12/03/18 04:54 Creatinine 1.9 mg/dL (0.8-1.5) H 12/03/18 04:54 Estimated GFR 37 ml/min 12/03/18 04:54 BUN/Creatinine Ratio 31 % 12/03/18 04:54 Glucose 117 mg/dL (75-100) H 12/03/18 04:54 POC Glucose 192 (70-105) H 12/03/18 11:39 Hemoglobin A1c 9.1 % (4-6) H 12/02/18 15:30 Calcium 8.9 mg/dL (8.4-10.2) 12/03/18 04:54 Magnesium 2.20 mg/dL (1.7-2.3) 12/02/18 12:45 Total Bilirubin 0.80 mg/dL (0.1-1.2) 12/03/18 04:54 AST 11 units/L (5-40) 12/03/18 04:54 ALT 11 units/L (7-56) 12/03/18 04:54 Alkaline Phosphatase 59 units/L (35-129) 12/03/18 04:54 Troponin T < 0.010 ng/mL (0.00-0.029) 12/02/18 12:45 NT-Pro-B Natriuret Pep 3763 pg/mL (0-900) H 12/02/18 12:45 Total Protein 5.9 g/dL (6.3-8.2) L 12/03/18 04:54 Albumin 3.0 g/dL (3.9-5) L 12/03/18 04:54 Albumin/Globulin Ratio 1.0 % 12/03/18 04:54 TSH 2.240 mlU/mL (0.270-4.200) 12/02/18 15:30 Free T4 1.15 ng/dL (0.76-1.46) 12/02/18 15:30 Urine Color Yellow (Yellow) 12/02/18 12:35 Urine Turbidity Clear (Clear) 12/02/18 12:35 Urine pH 5.0 (5.0-7.0) 12/02/18 12:35 Ur Specific [place] 1.013 (1.003-1.030) 12/02/18 12:35 Urine Protein >2000 mg dl mg/dL (Negative) 12/02/18 12:35 Urine Glucose (UA) Neg mg/dL (Negative) 12/02/18 12:35 Urine Ketones Neg mg/dL (Negative) 12/02/18 12:35 Urine Blood Neg (Negative) 12/02/18 12:35 Urine Nitrite Neg (Negative) 12/02/18 12:35 Urine Bilirubin Neg (Negative) 12/02/18 12:35 Urine Urobilinogen 2.0 mg/dL (<2.0) 12/02/18 12:35 Ur Leukocyte Esterase Neg (Negative) 12/02/18 12:35 Urine WBC (Auto) 1.0 /HPF (0.0-6.0) 12/02/18 12:35 Urine RBC (Auto) 3.0 /HPF (0.0-6.0) 12/02/18 12:35 U Epithel Cells (Auto) < 1.0 /HPF (0-13.0) 12/02/18 12:35 Urine Mucus Few /HPF 12/02/18 12:35 Digoxin 0.9 ng/mL (0.9-2.0) 12/02/18 12:45 Active Medications - Current Medications Current Medications: Generic Name Dose Route Start Last Admin Trade Name Freq PRN Reason Stop Dose Admin Acetaminophen 650 mg 12/02/18 13:39 Tylenol PO Q4H PRN Pain MILD(1-3)/Fever >100.5/RIBERA Albuterol 2.5 mg 12/02/18 13:39 Proventil IH Q4HRT PRN Shortness Of Breath Aspirin 81 mg 12/04/18 10:00 Baby Aspirin PO QDAY EDELMIRA Atorvastatin Calcium 10 mg 12/02/18 22:00 12/02/18 21:45 Lipitor PO 10 mg HS EDELMIRA Administration Bisacodyl 5 mg 12/02/18 14:28 Dulcolax PO 12/04/18 23:59 QDAY PRN Constipation Carvedilol 3.125 mg 12/02/18 22:00 12/03/18 12:50 Coreg PO Not Given BID [facility] Dextrose 50 ml 12/02/18 13:52 D50w (25gm) Syringe IV PRN PRN Hypoglycemia Digoxin 0.25 mg 12/03/18 10:00 12/03/18 12:48 Lanoxin PO 0.25 mg DAILY EDELMIRA Administration Furosemide 40 mg 12/03/18 13:00 Lasix IV BID EDELMIRA Insulin Human Lispro 0 unit 12/02/18 16:30 12/03/18 12:50 Humalog SUB-Q 2 unit ACHS EDELMIRA Administration Protocol Metolazone 5 mg 12/03/18 10:00 12/03/18 12:51 Zaroxolyn PO Not Given DAILY [facility] Ondansetron HCl 4 mg 12/02/18 13:39 Zofran IV Q8H PRN Nausea And Vomiting Prednisone 20 mg 12/03/18 10:00 12/03/18 12:48 Deltasone PO 20 mg QDAY EDELMIRA Administration Rivaroxaban 20 mg 12/03/18 10:00 12/03/18 12:48 Xarelto PO 20 mg QDAY EDELMIRA Administration Protocol Senna/Docusate Sodium 2 tab 12/02/18 14:27 Senokot S PO Q12H PRN Laxative Effect Sodium Chloride 10 ml 12/02/18 22:00 12/03/18 12:51 Sodium Chloride Flush Syringe 10 Ml IV 10 ml BID EDELMIRA Administration Sodium Chloride 10 ml 12/02/18 13:39 Sodium Chloride Flush Syringe 10 Ml IV PRN PRN LINE FLUSH Spironolactone 25 mg 12/03/18 10:00 12/03/18 12:50 Aldactone PO Not Given QDAY EDELMIRA
[2018-12-03] MEDS: LASIX IV SCH ×2 (16:30→21:18)
[2018-12-04 06:36] LABS: Basophils % (Auto) 0.6 % (0.0-1.8); Eosinophils % (Auto) 0.7 % (0.0-4.3); Lymphocytes # (Auto) 1.1 K/mm3 (1.2-5.4); Lymphocytes % (Auto) 17.3 % (13.4-35.0); Mean Corpuscular HGB Conc 30 % (32-34); Mean Corpuscular Volume 84 fl (84-94); Monocytes # (Auto) 0.7 K/mm3 (0.0-0.8); Monocytes % (Auto) 11.2 % (0.0-7.3); Platelet Count 148 K/mm3 (140-440); Red Blood Count 6.38 M/mm3 (3.65-5.03); Red Cell Distribution Width 19.7 % (13.2-15.2)
[2018-12-04 06:37] LABS: Hematocrit 53.9 % (35.5-45.6); Hemoglobin 16.3 gm/dl (11.8-15.2); Mean Corpuscular Hemoglobin 26 pg (28-32)
[2018-12-04 07:02] LABS: Calcium 8.6 mg/dL (8.4-10.2)
[2018-12-04] MEDS: HumaLOG SUB-Q SCH ×4 (07:13→22:29)
[2018-12-04] MEDS: DELTASONE PO SCH (09:34)
[2018-12-04] MEDS: ALDACTONE PO SCH (09:35)
[2018-12-04] MEDS: LANOXIN PO SCH (09:35)
[2018-12-04] MEDS: XARELTO PO SCH (09:35)
[2018-12-04] MEDS: BABY ASPIRIN PO SCH (09:35)
[2018-12-04] MEDS: LASIX IV SCH ×2 (09:35→22:28)
[2018-12-04] MEDS: COREG PO SCH ×2 (09:35→22:28)
[2018-12-04] MEDS: ZAROXOLYN PO SCH (09:36)
--- NOTE | 2018-12-04 10:59 | Progress Note ---
Assessment and Plan Chronic kidney disease secondary to DM and HTN Anasacra secondary to CHF and CKD DM type II on insulin Hypertension Afib on Xarelto -Renal function reviewed. 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 No family at beside. Reviewed renal plan of care. Objective - Vital Signs Vital signs: Vital Signs - 12hr 12/04/18 12/04/18 12/04/18 00:34 05:10 08:52 Temperature 97.9 F 97.5 F L 98.6 F Pulse Rate 67 58 L 64 Respiratory 20 18 20 Rate Blood Pressure 116/66 133/79 141/74 O2 Sat by Pulse 95 93 91 Oximetry 12/04/18 09:20 Temperature Pulse Rate Respiratory Rate Blood Pressure O2 Sat by Pulse 94 Oximetry - General Appearance General appearance: well-developed, appears stated age, fatigue EENT: ATNC, PERRL, hearing intact, vision intact Neck: no JVD, supple Respiratory: Present: Decreased Breath Sounds Cardiology: regular, S1S2 Gastrointestinal: normoactive bowel sounds Integumentary: warm and dry, chronic venous stasis Neurologic: alert and oriented x3 Musculoskeletal: joint swelling, other (has 2+ edema, has darrion dressing to [facility] foot wound) - Lab 12/04/18 06:02 12/04/18 06:02 Most recent lab results Calcium 8.6 mg/dL (8.4-10.2) 12/04/18 06:02 Magnesium 2.20 mg/dL (1.7-2.3) 12/02/18 12:45 Medications & Allergies - Medications Allergies/Adverse Reactions: Allergies Penicillins Allergy (Verified 01/16/17 08:30) Rash Home Medications: Home Medications Medication Instructions Recorded Confirmed Last Taken Type AtorvaSTATin [Lipitor] 10 mg PO HS 01/16/17 12/02/18 01/15/17 History Rivaroxaban [Xarelto] 20 mg PO QDAY 01/16/17 12/02/18 01/15/17 History Carvedilol [Coreg] 3.125 mg PO BID #60 tablet 03/08/17 12/02/18 Unknown Rx Digoxin [Digox] 250 mcg PO DAILY 12/02/18 12/02/18 Unknown History Insulin Detemir [Levemir VIAL] 20 unit SQ QHS 12/02/18 12/02/18 Unknown History Ipratropium/Albuterol Sulfate 1 spray IH QID 12/02/18 12/02/18 Unknown History [Combivent Respimat] Lispro Insulin [Humalog] 8 unit SQ AC 12/02/18 12/02/18 Unknown History Rivaroxaban [Xarelto] 20 mg PO QDAY 12/02/18 12/02/18 Unknown History Spironolactone [Aldactone] 25 mg PO QDAY 12/02/18 12/02/18 Unknown History Torsemide [Demadex] 20 mg PO DAILY 12/02/18 12/02/18 Unknown History metOLazone [Metolazone] 5 mg PO DAILY 12/02/18 12/02/18 Unknown History predniSONE [Deltasone] 20 mg PO QDAY 12/02/18 12/02/18 Unknown History Active Medications: Generic Name Dose Route Start Last Admin Trade Name Freq PRN Reason Stop Dose Admin Acetaminophen 650 mg 12/02/18 13:39 Tylenol PO Q4H PRN Pain MILD(1-3)/Fever >100.5/RIBERA Albuterol 2.5 mg 12/02/18 13:39 Proventil IH Q4HRT PRN Shortness Of Breath Aspirin 81 mg 12/04/18 10:00 12/04/18 09:35 Baby Aspirin PO 81 mg QDAY EDELMIRA Administration Atorvastatin Calcium 10 mg 12/02/18 22:00 12/03/18 21:18 Lipitor PO 10 mg HS EDELMIRA Administration Bisacodyl 5 mg 12/02/18 14:28 Dulcolax PO 12/04/18 23:59 QDAY PRN Constipation Carvedilol 3.125 mg 12/02/18 22:00 12/04/18 09:35 Coreg PO 3.125 mg BID EDELMIRA Administration Dextrose 50 ml 12/02/18 13:52 D50w (25gm) Syringe IV PRN PRN Hypoglycemia Digoxin 0.25 mg 12/03/18 10:00 12/04/18 09:35 Lanoxin PO 0.25 mg DAILY EDELMIRA Administration Furosemide 40 mg 12/03/18 13:00 12/04/18 09:35 Lasix IV 40 mg BID EDELMIRA Administration Insulin Human Lispro 0 unit 12/02/18 16:30 12/03/18 21:56 Humalog SUB-Q 3 unit ACHS EDELMIRA Administration Protocol Metolazone 5 mg 12/03/18 10:00 12/04/18 09:36 Zaroxolyn PO 5 mg DAILY EDELMIRA Administration Ondansetron HCl 4 mg 12/02/18 13:39 Zofran IV Q8H PRN Nausea And Vomiting Prednisone 20 mg 12/03/18 10:00 12/04/18 09:34 Deltasone PO 20 mg QDAY EDELMIRA Administration Rivaroxaban 20 mg 12/03/18 10:00 12/04/18 09:35 Xarelto PO 20 mg QDAY EDELMIRA Administration Protocol Senna/Docusate Sodium 2 tab 12/02/18 14:27 Senokot S PO Q12H PRN Laxative Effect Sodium Chloride 10 ml 12/02/18 22:00 12/03/18 21:20 Sodium Chloride Flush Syringe 10 Ml IV 10 ml BID EDELMIRA Administration Sodium Chloride 10 ml 12/02/18 13:39 Sodium Chloride Flush Syringe 10 Ml IV PRN PRN LINE FLUSH Spironolactone 25 mg 12/03/18 10:00 12/04/18 09:35 Aldactone PO 25 mg QDAY EDELMIRA Administration
--- NOTE | 2018-12-04 12:22 | Progress Note ---
Assessment and Plan Echo reviewed - EF 60-65%, RV mod dilated, RA mild to mod dilated, mod pulm HTN with RVSP 67mmHg. Cont present cardiac management. The patient has been seen in conjunction with Dr. Trent Mooney who agrees with the assessment and plan of care. - Patient Problems (1) Acute heart failure with preserved ejection fraction Current Visit: Yes Status: Acute (2) COPD (chronic obstructive pulmonary disease) Current Visit: Yes Status: Chronic (3) Chronic respiratory failure Current Visit: Yes Status: Chronic (4) Severe pulmonary arterial systolic hypertension Current Visit: Yes Status: Chronic (5) CKD (chronic kidney disease) Current Visit: Yes Status: Chronic (6) Hypertension Current Visit: Yes Status: Chronic Qualifiers: Hypertension type: essential hypertension Qualified Code(s): I10 - Essential (primary) hypertension (7) Hyperlipemia Current Visit: Yes Status: Chronic (8) Diabetes mellitus Current Visit: Yes Status: Chronic Qualifiers: Diabetes mellitus type: type 2 (9) Chronic atrial fibrillation Current Visit: Yes Status: Chronic (10) Anticoagulant long-term use Current Visit: Yes Status: Chronic (11) Morbid obesity Current Visit: Yes Status: Chronic (12) Tobacco use Current Visit: Yes Status: Chronic Subjective Date of service: 12/04/18 Principal diagnosis: CKD, CHF Interval history: pt sitting up at bedside, states he is feeling better. Had blister on LLE burst overnight and states wound care has been consulted. in AFib with CVR, SVR noted overnight, pt asymptomatic. Objective Last Vital Signs Temp 98.6 F 12/04/18 08:52 Pulse 64 12/04/18 08:52 Resp 20 12/04/18 08:52 BP 141/74 12/04/18 08:52 Pulse Ox 94 12/04/18 09:20 - Physical Examination General: No Apparent Distress HEENT: Positive: PERRL, Normocephaly, Mucus Membranes Moist Neck: Positive: neck supple, trachea midline Cardiac: Positive: irregularly irregular, S1/S2 Lungs: Positive: Decreased Breath Sounds Neuro: Positive: Grossly Intact Abdomen: Negative: Tender Skin: Positive: Other (BLE chronic venous stasis skin changes noted). Negative: Wound Extremities: Present: +3 Edema (BLE), Other (LLE wound) - Labs and Meds CBC 12/04/18 Range/Units 06:02 WBC 6.5 (4.5-11.0) K/mm3 RBC 6.38 H (3.65-5.03) M/mm3 Hgb 16.3 H (11.8-15.2) gm/dl Hct 53.9 H (35.5-45.6) % Plt Count 148 (140-440) K/mm3 Lymph # 1.1 L (1.2-5.4) K/mm3 [place] # 0.7 (0.0-0.8) K/mm3 Eos # 0.0 (0.0-0.4) K/mm3 Baso # 0.0 (0.0-0.1) K/mm3 Comprehensive Metabolic Panel 12/04/18 Range/Units 06:02 Sodium 137 (137-145) mmol/L Potassium 4.8 (3.6-5.0) mmol/L Chloride 93.8 L (98-107) mmol/L Carbon Dioxide 34 H (22-30) mmol/L BUN 57 H (9-20) mg/dL Creatinine 1.7 H (0.8-1.5) mg/dL Glucose 201 H (75-100) mg/dL Calcium 8.6 (8.4-10.2) mg/dL - Imaging and Cardiology EKG: report reviewed, image reviewed Echo: report reviewed (04/2016 showed EF 55-60%, abnormal diastolic function, mild LVH, LA mod dilated, RA mod dilated, RV mod dilated, mild MR, mod TR, severe pulm HTN with RVSP 97mmHg. ) - Telemetry EKG Rhythm: Atrial Fibrillation
--- NOTE | 2018-12-04 15:11 | Progress Note ---
Assessment and Plan Assessment and plan: Acute on chronic resp failure due to CHF exacerbation. Supplemental Oxygen Acute on chronic diastolic CHF. Continue Lasix iv Coreg, Aldactone cardiology following Acute on CKD. Monitor Nephrology on board Chronic afib Continue Xarelto DM type 2 Fingerstick glucose q ac and hs HTN Monitor BP left ankle wound Wound Nurse consulted Full code status History Interval history: Less shortness of breath, No chest pain Left foot wound Hospitalist Physical - Physical exam Narrative exam: GEN: Not in acute distress, sitting up in bed, morbidly obese HEENT: Normocephalic, atraumatic, Neck: supple, No JVD heart: S1 and S2 ireg,irreg, no murmurs, rubs or gallop Lungs: Bilateral basal crackles, no wheeze Abd:soft, non tender, non distended, normal bowel sounds Ext: Bilateral lower ext edema, chronic changes, no cyanosis, Neuro:Awake,alert,oriented X 3, no focal signs, moves all ext Psych: normal mood - Constitutional Vitals: Temp Pulse Resp BP Pulse Ox 98.6 F 64 20 141/74 94 12/04/18 08:52 12/04/18 08:52 12/04/18 08:52 12/04/18 08:52 12/04/18 09:20 General appearance: Present: no acute distress Results - Labs CBC & Chem 7: 12/04/18 06:02 12/04/18 06:02 Labs: Laboratory Last Values WBC 6.5 K/mm3 (4.5-11.0) 12/04/18 06:02 RBC 6.38 M/mm3 (3.65-5.03) H 12/04/18 06:02 Hgb 16.3 gm/dl (11.8-15.2) H 12/04/18 06:02 Hct 53.9 % (35.5-45.6) H 12/04/18 06:02 MCV 84 fl (84-94) 12/04/18 06:02 MCH 26 pg (28-32) L 12/04/18 06:02 MCHC 30 % (32-34) L 12/04/18 06:02 RDW 19.7 % (13.2-15.2) H 12/04/18 06:02 Plt Count 148 K/mm3 (140-440) 12/04/18 06:02 Lymph % (Auto) 17.3 % (13.4-35.0) 12/04/18 06:02 [place] % (Auto) 11.2 % (0.0-7.3) H 12/04/18 06:02 Eos % (Auto) 0.7 % (0.0-4.3) 12/04/18 06:02 Baso % (Auto) 0.6 % (0.0-1.8) 12/04/18 06:02 Lymph # 1.1 K/mm3 (1.2-5.4) L 12/04/18 06:02 [place] # 0.7 K/mm3 (0.0-0.8) 12/04/18 06:02 Eos # 0.0 K/mm3 (0.0-0.4) 12/04/18 06:02 Baso # 0.0 K/mm3 (0.0-0.1) 12/04/18 06:02 Seg Neutrophils % 70.2 % (40.0-70.0) H 12/04/18 06:02 Seg Neutrophils # 4.6 K/mm3 (1.8-7.7) 12/04/18 06:02 PT 14.2 Sec. (12.2-14.9) 12/02/18 12:45 INR 1.04 (0.87-1.13) 12/02/18 12:45 Sodium 137 mmol/L (137-145) 12/04/18 06:02 Potassium 4.8 mmol/L (3.6-5.0) 12/04/18 06:02 Chloride 93.8 mmol/L (98-107) L 12/04/18 06:02 Carbon Dioxide 34 mmol/L (22-30) H 12/04/18 06:02 Anion Gap 14 mmol/L 12/04/18 06:02 BUN 57 mg/dL (9-20) H 12/04/18 06:02 Creatinine 1.7 mg/dL (0.8-1.5) H 12/04/18 06:02 Estimated GFR 42 ml/min 12/04/18 06:02 BUN/Creatinine Ratio 34 % 12/04/18 06:02 Glucose 201 mg/dL (75-100) H 12/04/18 06:02 POC Glucose 170 (70-105) H 12/04/18 12:33 Hemoglobin A1c 9.1 % (4-6) H 12/02/18 15:30 Calcium 8.6 mg/dL (8.4-10.2) 12/04/18 06:02 Magnesium 2.20 mg/dL (1.7-2.3) 12/02/18 12:45 Total Bilirubin 0.80 mg/dL (0.1-1.2) 12/03/18 04:54 AST 11 units/L (5-40) 12/03/18 04:54 ALT 11 units/L (7-56) 12/03/18 04:54 Alkaline Phosphatase 59 units/L (35-129) 12/03/18 04:54 Troponin T < 0.010 ng/mL (0.00-0.029) 12/02/18 12:45 NT-Pro-B Natriuret Pep 3763 pg/mL (0-900) H 12/02/18 12:45 Total Protein 5.9 g/dL (6.3-8.2) L 12/03/18 04:54 Albumin 3.0 g/dL (3.9-5) L 12/03/18 04:54 Albumin/Globulin Ratio 1.0 % 12/03/18 04:54 TSH 2.240 mlU/mL (0.270-4.200) 12/02/18 15:30 Free T4 1.15 ng/dL (0.76-1.46) 12/02/18 15:30 Urine Color Yellow (Yellow) 12/02/18 12:35 Urine Turbidity Clear (Clear) 12/02/18 12:35 Urine pH 5.0 (5.0-7.0) 12/02/18 12:35 Ur Specific [place] 1.013 (1.003-1.030) 12/02/18 12:35 Urine Protein >2000 mg dl mg/dL (Negative) 12/02/18 12:35 Urine Glucose (UA) Neg mg/dL (Negative) 12/02/18 12:35 Urine Ketones Neg mg/dL (Negative) 12/02/18 12:35 Urine Blood Neg (Negative) 12/02/18 12:35 Urine Nitrite Neg (Negative) 12/02/18 12:35 Urine Bilirubin Neg (Negative) 12/02/18 12:35 Urine Urobilinogen 2.0 mg/dL (<2.0) 12/02/18 12:35 Ur Leukocyte Esterase Neg (Negative) 12/02/18 12:35 Urine WBC (Auto) 1.0 /HPF (0.0-6.0) 12/02/18 12:35 Urine RBC (Auto) 3.0 /HPF (0.0-6.0) 12/02/18 12:35 U Epithel Cells (Auto) < 1.0 /HPF (0-13.0) 12/02/18 12:35 Urine Mucus Few /HPF 12/02/18 12:35 Digoxin 0.9 ng/mL (0.9-2.0) 12/02/18 12:45 Active Medications - Current Medications Current Medications: Generic Name Dose Route Start Last Admin Trade Name Freq PRN Reason Stop Dose Admin Acetaminophen 650 mg 12/02/18 13:39 Tylenol PO Q4H PRN Pain MILD(1-3)/Fever >100.5/RIBERA Albuterol 2.5 mg 12/02/18 13:39 Proventil IH Q4HRT PRN Shortness Of Breath Aspirin 81 mg 12/04/18 10:00 12/04/18 09:35 Baby Aspirin PO 81 mg QDAY EDELMIRA Administration Atorvastatin Calcium 10 mg 12/02/18 22:00 12/03/18 21:18 Lipitor PO 10 mg HS EDELMIRA Administration Bisacodyl 5 mg 12/02/18 14:28 Dulcolax PO 12/04/18 23:59 QDAY PRN Constipation Carvedilol 3.125 mg 12/02/18 22:00 12/04/18 09:35 Coreg PO 3.125 mg BID EDELMIRA Administration Dextrose 50 ml 12/02/18 13:52 D50w (25gm) Syringe IV PRN PRN Hypoglycemia Digoxin 0.25 mg 12/03/18 10:00 12/04/18 09:35 Lanoxin PO 0.25 mg DAILY EDELMIRA Administration Furosemide 40 mg 12/03/18 13:00 12/04/18 09:35 Lasix IV 40 mg BID EDELMIRA Administration Insulin Human Lispro 0 unit 12/02/18 16:30 12/03/18 21:56 Humalog SUB-Q 3 unit ACHS EDELMIRA Administration Protocol Metolazone 5 mg 12/03/18 10:00 12/04/18 09:36 Zaroxolyn PO 5 mg DAILY EDELMIRA Administration Ondansetron HCl 4 mg 12/02/18 13:39 Zofran IV Q8H PRN Nausea And Vomiting Prednisone 20 mg 12/03/18 10:00 12/04/18 09:34 Deltasone PO 20 mg QDAY EDELMIRA Administration Rivaroxaban 20 mg 12/03/18 10:00 12/04/18 09:35 Xarelto PO 20 mg QDAY EDELMIRA Administration Protocol Senna/Docusate Sodium 2 tab 12/02/18 14:27 Senokot S PO Q12H PRN Laxative Effect Sodium Chloride 10 ml 12/02/18 22:00 12/03/18 21:20 Sodium Chloride Flush Syringe 10 Ml IV 10 ml BID EDELMIRA Administration Sodium Chloride 10 ml 12/02/18 13:39 Sodium Chloride Flush Syringe 10 Ml IV PRN PRN LINE FLUSH Spironolactone 25 mg 12/03/18 10:00 12/04/18 09:35 Aldactone PO 25 mg QDAY EDELMIRA Administration
[2018-12-04] MEDS: SODIUM CHLORIDE FLUSH SYRINGE 10 ML IV SCH (22:28)
[2018-12-05 06:10] LABS: Basophils # (Auto) 0.1 K/mm3 (0.0-0.1); Basophils % (Auto) 0.7 % (0.0-1.8); Eosinophils # (Auto) 0.1 K/mm3 (0.0-0.4); Eosinophils % (Auto) 0.7 % (0.0-4.3); Lymphocytes # (Auto) 1.3 K/mm3 (1.2-5.4); Lymphocytes % (Auto) 16.7 % (13.4-35.0); Mean Corpuscular HGB Conc 31 % (32-34); Mean Corpuscular Hemoglobin 26 pg (28-32); Mean Corpuscular Volume 84 fl (84-94); Monocytes # (Auto) 0.6 K/mm3 (0.0-0.8); Platelet Count 164 K/mm3 (140-440); Red Blood Count 6.48 M/mm3 (3.65-5.03); Red Cell Distribution Width 19.5 % (13.2-15.2)
[2018-12-05 06:27] LABS: Hematocrit 54.6 % (35.5-45.6); Hemoglobin 17.1 gm/dl (11.8-15.2)
[2018-12-05] MEDS: TYLENOL PO PRN ×2 (08:18→17:28)
[2018-12-05] MEDS: HumaLOG SUB-Q SCH ×4 (09:01→22:29)
[2018-12-05] MEDS: SODIUM CHLORIDE FLUSH SYRINGE 10 ML IV SCH ×3 (10:19→22:29)
[2018-12-05] MEDS: ALDACTONE PO SCH (10:19)
[2018-12-05] MEDS: COREG PO SCH ×2 (10:20→22:26)
[2018-12-05] MEDS: LASIX IV SCH ×2 (10:21→22:28)
[2018-12-05] MEDS: DELTASONE PO SCH (10:23)
[2018-12-05] MEDS: ZAROXOLYN PO SCH (10:23)
[2018-12-05] MEDS: XARELTO PO SCH (10:23)
[2018-12-05] MEDS: BABY ASPIRIN PO SCH (10:23)
[2018-12-05] MEDS: LANOXIN PO SCH (10:23)
--- NOTE | 2018-12-05 12:36 | Consultation ---
History of Present Illness Consult date: 12/05/18 Reason for consult: other (Left heel ulcer) - History of present illness History of present illness: 58 yo diabetic male with a bleeding left heel ulcer. Past History Past Medical History: atrial fib, COPD, diabetes, heart failure, hypertension, hyperlipidemia Past Surgical History: No surgical history, Other (reviewed) Social history: single, smoking. denies: alcohol abuse, prescription drug abuse Family history: hypertension Medications and Allergies Allergies Allergy/AdvReac Type Severity Reaction Status Date / Time Penicillins Allergy Rash Verified 01/16/17 08:30 Home Medications Medication Instructions Recorded Confirmed Last Taken Type AtorvaSTATin [Lipitor] 10 mg PO HS 01/16/17 12/02/18 01/15/17 History Rivaroxaban [Xarelto] 20 mg PO QDAY 01/16/17 12/02/18 01/15/17 History Carvedilol [Coreg] 3.125 mg PO BID #60 tablet 03/08/17 12/02/18 Unknown Rx Digoxin [Digox] 250 mcg PO DAILY 12/02/18 12/02/18 Unknown History Insulin Detemir [Levemir VIAL] 20 unit SQ QHS 12/02/18 12/02/18 Unknown History Ipratropium/Albuterol Sulfate 1 spray IH QID 12/02/18 12/02/18 Unknown History [Combivent Respimat] Lispro Insulin [Humalog] 8 unit SQ AC 12/02/18 12/02/18 Unknown History Rivaroxaban [Xarelto] 20 mg PO QDAY 12/02/18 12/02/18 Unknown History Spironolactone [Aldactone] 25 mg PO QDAY 12/02/18 12/02/18 Unknown History Torsemide [Demadex] 20 mg PO DAILY 12/02/18 12/02/18 Unknown History metOLazone [Metolazone] 5 mg PO DAILY 12/02/18 12/02/18 Unknown History predniSONE [Deltasone] 20 mg PO QDAY 12/02/18 12/02/18 Unknown History Active Meds: Active Medications Acetaminophen (Tylenol) 650 mg PO Q4H PRN PRN Reason: Pain MILD(1-3)/Fever >100.5/RIBERA Last Admin: 12/05/18 08:18 Dose: 650 mg Documented by: Albuterol (Proventil) 2.5 mg IH Q4HRT PRN PRN Reason: Shortness Of Breath Albuterol/Ipratropium (Duoneb *Not For Prn Use*) 1 ampul IH TIDRT [facility] Aspirin (Baby Aspirin) 81 mg PO QDAY [facility] Last Admin: 12/05/18 10:23 Dose: 81 mg Documented by: Atorvastatin Calcium (Lipitor) 10 mg PO HS [facility] Last Admin: 12/04/18 22:28 Dose: 10 mg Documented by: Carvedilol (Coreg) 3.125 mg PO BID [facility] Last Admin: 12/05/18 10:20 Dose: Not Given Documented by: Dextrose (D50w (25gm) Syringe) 50 ml IV PRN PRN PRN Reason: Hypoglycemia Digoxin (Lanoxin) 0.25 mg PO DAILY [facility] Last Admin: 12/05/18 10:23 Dose: 0.25 mg Documented by: Furosemide (Lasix) 40 mg IV BID [facility] Last Admin: 12/05/18 10:21 Dose: Not Given Documented by: Insulin Human Lispro (Humalog) 0 unit SUB-Q ACHS [facility]; Protocol Last Admin: 12/05/18 11:35 Dose: 6 unit Documented by: Metolazone (Zaroxolyn) 5 mg PO DAILY [facility] Last Admin: 12/05/18 10:23 Dose: 5 mg Documented by: Ondansetron HCl (Zofran) 4 mg IV Q8H PRN PRN Reason: Nausea And Vomiting Prednisone (Deltasone) 20 mg PO QDAY [facility] Last Admin: 12/05/18 10:23 Dose: 20 mg Documented by: Rivaroxaban (Xarelto) 20 mg PO QDAY [facility]; Protocol Last Admin: 12/05/18 10:23 Dose: 20 mg Documented by: Senna/Docusate Sodium (Senokot S) 2 tab PO Q12H PRN PRN Reason: Laxative Effect Sodium Chloride (Sodium Chloride Flush Syringe 10 Ml) 10 ml IV BID [facility] Last Admin: 12/05/18 10:23 Dose: 10 ml Documented by: Sodium Chloride (Sodium Chloride Flush Syringe 10 Ml) 10 ml IV PRN PRN PRN Reason: LINE FLUSH Spironolactone (Aldactone) 25 mg PO QDAY [facility] Last Admin: 12/05/18 10:19 Dose: Not Given Documented by: Review of Systems All systems: negative (none) Exam Vital Signs Temp Pulse Resp BP Pulse Ox 98.2 F 103 H 24 135/70 81 L 12/02/18 11:58 12/02/18 11:58 12/02/18 11:58 12/02/18 11:58 12/02/18 11:58 - General physical appearance Positive: well developed, well nourished, no distress - Eyes Positive: PERRL, normal occular movement - ENT Positive: normal pinna, normal nares, normal mucosa, no hearing loss, no congestion - Neck Positive: no masses, no bruits, trachea midline, no venous distension - Respiratory Positive: normal expansion, normal respiratory effort, clear to auscultation - Cardiovascular Rhythm: regular Heart Sounds: Present: S1 & S2. Absent: rub, click - Extremities Extremities: no ischemia, pulses symmetrical, No edema - Breasts Breasts: deferred - Abdomen Abdomen: Present: soft, bowel sounds normal. Absent: tender, distended Hernia: none - Genitourinary Male Genitourinary: deferred - Integumentary other (Feet appear cyanotic. The left DP is non-palpable. There is a 3 X 3 cm dry ulcer over the left lateral malleolus. ) - Neurologic Neurologic: alert and oriented to time, place and person, motor strength and sensation are grossly intact - Musculoskeletal normal gait, normal posture - Psychiatric Psychiatric: appropriate mood/affect, intact judgment & insight Results - Labs 12/05/18 04:27 12/05/18 04:27 Abnormal lab results 12/04/18 12/04/18 12/04/18 Range/Units 12:33 17:08 21:56 RBC (3.65-5.03) M/mm3 Hgb (11.8-15.2) gm/dl Hct (35.5-45.6) % MCH (28-32) pg MCHC (32-34) % RDW (13.2-15.2) % Seg Neutrophils % (40.0-70.0) % Chloride (98-107) mmol/L Carbon Dioxide (22-30) mmol/L BUN (9-20) mg/dL Glucose (75-100) mg/dL POC Glucose 170 H 284 H 179 H (70-105) 12/05/18 12/05/18 12/05/18 Range/Units 00:32 04:27 04:27 RBC 6.48 H (3.65-5.03) M/mm3 Hgb 17.1 H (11.8-15.2) gm/dl Hct 54.6 H (35.5-45.6) % MCH 26 L (28-32) pg MCHC 31 L (32-34) % RDW 19.5 H (13.2-15.2) % Seg Neutrophils % 74.9 H (40.0-70.0) % Chloride 92.7 L (98-107) mmol/L Carbon Dioxide 36 H (22-30) mmol/L BUN 53 H (9-20) mg/dL Glucose 148 H (75-100) mg/dL POC Glucose 164 H (70-105) 12/05/18 Range/Units 08:38 RBC (3.65-5.03) M/mm3 Hgb (11.8-15.2) gm/dl Hct (35.5-45.6) % MCH (28-32) pg MCHC (32-34) % RDW (13.2-15.2) % Seg Neutrophils % (40.0-70.0) % Chloride (98-107) mmol/L Carbon Dioxide (22-30) mmol/L BUN (9-20) mg/dL Glucose (75-100) mg/dL POC Glucose 125 H (70-105) Diabetes panel 12/05/18 Range/Units 04:27 Sodium 140 (137-145) mmol/L Potassium 4.9 (3.6-5.0) mmol/L Chloride 92.7 L (98-107) mmol/L Carbon Dioxide 36 H (22-30) mmol/L BUN 53 H (9-20) mg/dL Creatinine 1.4 (0.8-1.5) mg/dL Glucose 148 H (75-100) mg/dL Calcium 9.0 (8.4-10.2) mg/dL Calcium panel 12/05/18 Range/Units 04:27 Calcium 9.0 (8.4-10.2) mg/dL Pituitary panel 12/05/18 Range/Units 04:27 Sodium 140 (137-145) mmol/L Potassium 4.9 (3.6-5.0) mmol/L Chloride 92.7 L (98-107) mmol/L Carbon Dioxide 36 H (22-30) mmol/L BUN 53 H (9-20) mg/dL Creatinine 1.4 (0.8-1.5) mg/dL Glucose 148 H (75-100) mg/dL Calcium 9.0 (8.4-10.2) mg/dL Adrenal panel 12/05/18 Range/Units 04:27 Sodium 140 (137-145) mmol/L Potassium 4.9 (3.6-5.0) mmol/L Chloride 92.7 L (98-107) mmol/L Carbon Dioxide 36 H (22-30) mmol/L BUN 53 H (9-20) mg/dL Creatinine 1.4 (0.8-1.5) mg/dL Glucose 148 H (75-100) mg/dL Calcium 9.0 (8.4-10.2) mg/dL - Imaging Additional studies: A1c was 9.1 on 12/02/18. Assessment and Plan - Patient Problems (1) Non-pressure chronic ulcer of left ankle with fat layer exposed Current Visit: Yes Status: Acute Plan to address problem: 1) LLE arterial dopplers 2) Strict control of DM 3) Wound care per Wound Care nurse 4) F/u in [facility]ound Care Clinic
--- NOTE | 2018-12-05 12:56 | Progress Note ---
Assessment and Plan Chronic kidney disease secondary to DM and HTN Anasacra secondary to CHF and CKD DM type II on insulin Hypertension Afib on Xarelto -Renal function reviewed. 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 Daughter at bedside. RN states she held Lasix this morning due to Hypotension.. Objective - Vital Signs Vital signs: Vital Signs - 12hr 12/05/18 12/05/18 12/05/18 08:34 08:35 10:00 Temperature 98.0 F Pulse Rate 89 98 H Pulse Rate [ 97 H Apical] Pulse Rate [ 97 H Left Radial] Pulse Rate [ Posterior Bilateral] Pulse Rate [ 97 H Right Radial] Respiratory 18 19 Rate Respiratory Rate [Posterior Bilateral] Blood Pressure 112/59 O2 Sat by Pulse 94 93 91 Oximetry 12/05/18 12/05/18 12/05/18 10:19 10:20 10:23 Temperature Pulse Rate 97 H 97 H 97 H Pulse Rate [ Apical] Pulse Rate [ Left Radial] Pulse Rate [ Posterior Bilateral] Pulse Rate [ Right Radial] Respiratory Rate Respiratory Rate [Posterior Bilateral] Blood Pressure 99/58 99/58 99/58 O2 Sat by Pulse Oximetry 12/05/18 12/05/18 12/05/18 11:00 11:12 11:31 Temperature 98.2 F Pulse Rate 79 Pulse Rate [ Apical] Pulse Rate [ Left Radial] Pulse Rate [ 89 92 H Posterior Bilateral] Pulse Rate [ Right Radial] Respiratory 20 Rate Respiratory 18 18 Rate [Posterior Bilateral] Blood Pressure 95/50 O2 Sat by Pulse 94 Oximetry - General Appearance General appearance: well-developed, obese EENT: ATNC, PERRL, hearing intact, vision intact Neck: no JVD, supple Respiratory: Present: Decreased Breath Sounds Cardiology: regular, S1S2 Gastrointestinal: normoactive bowel sounds, obese Integumentary: warm and dry, ulcer, chronic venous stasis Neurologic: alert and oriented x3 Musculoskeletal: joint swelling, other (has 2-3+ edema to BLE) - Lab 12/05/18 04:27 12/05/18 04:27 Most recent lab results Calcium 9.0 mg/dL (8.4-10.2) 12/05/18 04:27 Magnesium 2.20 mg/dL (1.7-2.3) 12/02/18 12:45 Medications & Allergies - Medications Allergies/Adverse Reactions: Allergies Penicillins Allergy (Verified 01/16/17 08:30) Rash Home Medications: Home Medications Medication Instructions Recorded Confirmed Last Taken Type AtorvaSTATin [Lipitor] 10 mg PO HS 01/16/17 12/02/18 01/15/17 History Rivaroxaban [Xarelto] 20 mg PO QDAY 01/16/17 12/02/18 01/15/17 History Carvedilol [Coreg] 3.125 mg PO BID #60 tablet 03/08/17 12/02/18 Unknown Rx Digoxin [Digox] 250 mcg PO DAILY 12/02/18 12/02/18 Unknown History Insulin Detemir [Levemir VIAL] 20 unit SQ QHS 12/02/18 12/02/18 Unknown History Ipratropium/Albuterol Sulfate 1 spray IH QID 12/02/18 12/02/18 Unknown History [Combivent Respimat] Lispro Insulin [Humalog] 8 unit SQ AC 12/02/18 12/02/18 Unknown History Rivaroxaban [Xarelto] 20 mg PO QDAY 12/02/18 12/02/18 Unknown History Spironolactone [Aldactone] 25 mg PO QDAY 12/02/18 12/02/18 Unknown History Torsemide [Demadex] 20 mg PO DAILY 12/02/18 12/02/18 Unknown History metOLazone [Metolazone] 5 mg PO DAILY 12/02/18 12/02/18 Unknown History predniSONE [Deltasone] 20 mg PO QDAY 12/02/18 12/02/18 Unknown History Active Medications: Generic Name Dose Route Start Last Admin Trade Name Freq PRN Reason Stop Dose Admin Acetaminophen 650 mg 12/02/18 13:39 12/05/18 08:18 Tylenol PO 650 mg Q4H PRN Administration Pain MILD(1-3)/Fever >100.5/RIBERA Albuterol 2.5 mg 12/02/18 13:39 Proventil IH Q4HRT PRN Shortness Of Breath Albuterol/Ipratropium 1 ampul 12/05/18 14:00 Duoneb *Not For Prn Use* IH TIDRT EDELMIRA Aspirin 81 mg 12/04/18 10:00 12/05/18 10:23 Baby Aspirin PO 81 mg QDAY EDELMIRA Administration Atorvastatin Calcium 10 mg 12/02/18 22:00 12/04/18 22:28 Lipitor PO 10 mg HS EDELMIRA Administration Carvedilol 3.125 mg 12/02/18 22:00 12/05/18 10:20 Coreg PO Not Given BID [facility] Dextrose 50 ml 12/02/18 13:52 D50w (25gm) Syringe IV PRN PRN Hypoglycemia Digoxin 0.25 mg 12/03/18 10:00 12/05/18 10:23 Lanoxin PO 0.25 mg DAILY EDELMIRA Administration Furosemide 40 mg 12/03/18 13:00 12/05/18 10:21 Lasix IV Not Given BID [facility] Insulin Human Lispro 0 unit 12/02/18 16:30 12/05/18 11:35 Humalog SUB-Q 6 unit ACHS [facility] Administration Protocol Metolazone 5 mg 12/03/18 10:00 12/05/18 10:23 Zaroxolyn PO 5 mg DAILY EDELMIRA Administration Ondansetron HCl 4 mg 12/02/18 13:39 Zofran IV Q8H PRN Nausea And Vomiting Prednisone 20 mg 12/03/18 10:00 12/05/18 10:23 Deltasone PO 20 mg QDAY EDELMIRA Administration Rivaroxaban 20 mg 12/03/18 10:00 12/05/18 10:23 Xarelto PO 20 mg QDAY EDELMIRA Administration Protocol Senna/Docusate Sodium 2 tab 12/02/18 14:27 Senokot S PO Q12H PRN Laxative Effect Sodium Chloride 10 ml 12/02/18 22:00 12/05/18 10:23 Sodium Chloride Flush Syringe 10 Ml IV 10 ml BID EDELMIRA Administration Sodium Chloride 10 ml 12/02/18 13:39 Sodium Chloride Flush Syringe 10 Ml IV PRN PRN LINE FLUSH Spironolactone 25 mg 12/03/18 10:00 12/05/18 10:19 Aldactone PO Not Given QDAY EDELMIRA
--- NOTE | 2018-12-05 14:37 | Progress Note ---
Assessment and Plan Assessment and plan: Acute on chronic resp failure due to CHF exacerbation. Supplemental Oxygen Acute on chronic diastolic CHF. Continue Lasix iv Coreg, Aldactone cardiology following Acute on CKD. Monitor Nephrology on board Chronic afib Continue Xarelto DM type 2 Fingerstick glucose q ac and hs HTN Monitor BP Left ankle wound Wound Nurse consulted, patient evaluated by Surgeon Full code status Not stable for discharge today. Likely discharge in 1-2 days History Interval history: Less shortness of breath, Still swelling both feet, legs No chest pain Left foot wound Hospitalist Physical - Physical exam Narrative exam: GEN: Not in acute distress, sitting up in bed, morbidly obese HEENT: Normocephalic, atraumatic, Neck: supple, No JVD heart: S1 and S2 ireg,irreg, no murmurs, rubs or gallop Lungs: Bilateral basal crackles, no wheeze Abd:soft, non tender, non distended, normal bowel sounds Ext: Bilateral lower ext edema, chronic changes, no cyanosis, Neuro:Awake,alert,oriented X 3, no focal signs, moves all ext Psych: normal mood - Constitutional Vitals: Temp Pulse Resp BP Pulse Ox 98.2 F 109 H 20 95/50 94 12/05/18 11:31 12/05/18 14:00 12/05/18 11:31 12/05/18 11:31 12/05/18 11:31 General appearance: Present: no acute distress Results - Labs CBC & Chem 7: 12/05/18 04:27 12/05/18 04:27 Labs: Laboratory Last Values WBC 8.0 K/mm3 (4.5-11.0) 12/05/18 04:27 RBC 6.48 M/mm3 (3.65-5.03) H 12/05/18 04:27 Hgb 17.1 gm/dl (11.8-15.2) H 12/05/18 04:27 Hct 54.6 % (35.5-45.6) H 12/05/18 04:27 MCV 84 fl (84-94) 12/05/18 04:27 MCH 26 pg (28-32) L 12/05/18 04:27 MCHC 31 % (32-34) L 12/05/18 04:27 RDW 19.5 % (13.2-15.2) H 12/05/18 04:27 Plt Count 164 K/mm3 (140-440) 12/05/18 04:27 Lymph % (Auto) 16.7 % (13.4-35.0) 12/05/18 04:27 Rogers % (Auto) 7.0 % (0.0-7.3) 12/05/18 04:27 Eos % (Auto) 0.7 % (0.0-4.3) 12/05/18 04:27 Baso % (Auto) 0.7 % (0.0-1.8) 12/05/18 04:27 Lymph # 1.3 K/mm3 (1.2-5.4) 12/05/18 04:27 Rogers # 0.6 K/mm3 (0.0-0.8) 12/05/18 04:27 Eos # 0.1 K/mm3 (0.0-0.4) 12/05/18 04:27 Baso # 0.1 K/mm3 (0.0-0.1) 12/05/18 04:27 Seg Neutrophils % 74.9 % (40.0-70.0) H 12/05/18 04:27 Seg Neutrophils # 6.0 K/mm3 (1.8-7.7) 12/05/18 04:27 PT 14.2 Sec. (12.2-14.9) 12/02/18 12:45 INR 1.04 (0.87-1.13) 12/02/18 12:45 Sodium 140 mmol/L (137-145) 12/05/18 04:27 Potassium 4.9 mmol/L (3.6-5.0) 12/05/18 04:27 Chloride 92.7 mmol/L (98-107) L 12/05/18 04:27 Carbon Dioxide 36 mmol/L (22-30) H 12/05/18 04:27 Anion Gap 16 mmol/L 12/05/18 04:27 BUN 53 mg/dL (9-20) H 12/05/18 04:27 Creatinine 1.4 mg/dL (0.8-1.5) 12/05/18 04:27 Estimated GFR 52 ml/min 12/05/18 04:27 BUN/Creatinine Ratio 38 % 12/05/18 04:27 Glucose 148 mg/dL (75-100) H 12/05/18 04:27 POC Glucose 125 (70-105) H 12/05/18 08:38 Hemoglobin A1c 9.1 % (4-6) H 12/02/18 15:30 Calcium 9.0 mg/dL (8.4-10.2) 12/05/18 04:27 Magnesium 2.20 mg/dL (1.7-2.3) 12/02/18 12:45 Total Bilirubin 0.80 mg/dL (0.1-1.2) 12/03/18 04:54 AST 11 units/L (5-40) 12/03/18 04:54 ALT 11 units/L (7-56) 12/03/18 04:54 Alkaline Phosphatase 59 units/L (35-129) 12/03/18 04:54 Troponin T < 0.010 ng/mL (0.00-0.029) 12/02/18 12:45 NT-Pro-B Natriuret Pep 3763 pg/mL (0-900) H 12/02/18 12:45 Total Protein 5.9 g/dL (6.3-8.2) L 12/03/18 04:54 Albumin 3.0 g/dL (3.9-5) L 12/03/18 04:54 Albumin/Globulin Ratio 1.0 % 12/03/18 04:54 TSH 2.240 mlU/mL (0.270-4.200) 12/02/18 15:30 Free T4 1.15 ng/dL (0.76-1.46) 12/02/18 15:30 Urine Color Yellow (Yellow) 12/02/18 12:35 Urine Turbidity Clear (Clear) 12/02/18 12:35 Urine pH 5.0 (5.0-7.0) 12/02/18 12:35 Ur Specific [place] 1.013 (1.003-1.030) 12/02/18 12:35 Urine Protein >2000 mg dl mg/dL (Negative) 12/02/18 12:35 Urine Glucose (UA) Neg mg/dL (Negative) 12/02/18 12:35 Urine Ketones Neg mg/dL (Negative) 12/02/18 12:35 Urine Blood Neg (Negative) 12/02/18 12:35 Urine Nitrite Neg (Negative) 12/02/18 12:35 Urine Bilirubin Neg (Negative) 12/02/18 12:35 Urine Urobilinogen 2.0 mg/dL (<2.0) 12/02/18 12:35 Ur Leukocyte Esterase Neg (Negative) 12/02/18 12:35 Urine WBC (Auto) 1.0 /HPF (0.0-6.0) 12/02/18 12:35 Urine RBC (Auto) 3.0 /HPF (0.0-6.0) 12/02/18 12:35 U Epithel Cells (Auto) < 1.0 /HPF (0-13.0) 12/02/18 12:35 Urine Mucus Few /HPF 12/02/18 12:35 Digoxin 0.9 ng/mL (0.9-2.0) 12/02/18 12:45 Active Medications - Current Medications Current Medications: Generic Name Dose Route Start Last Admin Trade Name Freq PRN Reason Stop Dose Admin Acetaminophen 650 mg 12/02/18 13:39 12/05/18 08:18 Tylenol PO 650 mg Q4H PRN Administration Pain MILD(1-3)/Fever >100.5/RIBERA Albuterol 2.5 mg 12/02/18 13:39 Proventil IH Q4HRT PRN Shortness Of Breath Albuterol/Ipratropium 1 ampul 12/05/18 14:00 Duoneb *Not For Prn Use* IH TIDRT EDELMIRA Aspirin 81 mg 12/04/18 10:00 12/05/18 10:23 Baby Aspirin PO 81 mg QDAY EDELMIRA Administration Atorvastatin Calcium 10 mg 12/02/18 22:00 12/04/18 22:28 Lipitor PO 10 mg HS EDELMIRA Administration Carvedilol 3.125 mg 12/02/18 22:00 12/05/18 10:20 Coreg PO Not Given BID EDELMIRA Dextrose 50 ml 12/02/18 13:52 D50w (25gm) Syringe IV PRN PRN Hypoglycemia Digoxin 0.25 mg 12/03/18 10:00 12/05/18 10:23 Lanoxin PO 0.25 mg DAILY EDELMIRA Administration Furosemide 40 mg 12/03/18 13:00 12/05/18 10:21 Lasix IV Not Given BID [facility] Insulin Human Lispro 0 unit 12/02/18 16:30 12/05/18 11:35 Humalog SUB-Q 6 unit ACHS EDELMIRA Administration Protocol Metolazone 5 mg 12/03/18 10:00 12/05/18 10:23 Zaroxolyn PO 5 mg DAILY EDELMIRA Administration Ondansetron HCl 4 mg 12/02/18 13:39 Zofran IV Q8H PRN Nausea And Vomiting Prednisone 20 mg 12/03/18 10:00 12/05/18 10:23 Deltasone PO 20 mg QDAY EDELMIRA Administration Rivaroxaban 20 mg 12/03/18 10:00 12/05/18 10:23 Xarelto PO 20 mg QDAY EDELMIRA Administration Protocol Senna/Docusate Sodium 2 tab 12/02/18 14:27 Senokot S PO Q12H PRN Laxative Effect Sodium Chloride 10 ml 12/02/18 22:00 12/05/18 10:23 Sodium Chloride Flush Syringe 10 Ml IV 10 ml BID EDELMIRA Administration Sodium Chloride 10 ml 12/02/18 13:39 Sodium Chloride Flush Syringe 10 Ml IV PRN PRN LINE FLUSH Spironolactone 25 mg 12/03/18 10:00 12/05/18 10:19 Aldactone PO Not Given QDAY EDELMIRA
--- NOTE | 2018-12-05 14:52 | Progress Note ---
Assessment and Plan Cont present cardiac management. The patient has been seen in conjunction with Dr. Trent Mooney who agrees with the assessment and plan of care. - Patient Problems (1) Acute heart failure with preserved ejection fraction Current Visit: Yes Status: Acute (2) COPD (chronic obstructive pulmonary disease) Current Visit: Yes Status: Chronic (3) Chronic respiratory failure Current Visit: Yes Status: Chronic (4) Severe pulmonary arterial systolic hypertension Current Visit: Yes Status: Chronic (5) CKD (chronic kidney disease) Current Visit: Yes Status: Chronic (6) Hypertension Current Visit: Yes Status: Chronic Qualifiers: Hypertension type: essential hypertension Qualified Code(s): I10 - Essential (primary) hypertension (7) Hyperlipemia Current Visit: Yes Status: Chronic (8) Diabetes mellitus Current Visit: Yes Status: Chronic Qualifiers: Diabetes mellitus type: type 2 (9) Chronic atrial fibrillation Current Visit: Yes Status: Chronic (10) Anticoagulant long-term use Current Visit: Yes Status: Chronic (11) Morbid obesity Current Visit: Yes Status: Chronic (12) Tobacco use Current Visit: Yes Status: Chronic Subjective Date of service: 12/05/18 Principal diagnosis: CKD, CHF Interval history: pt sitting up at bedside, states he is feeling better. still with LLE blister/wound. in AFib with CVR. Objective Last Vital Signs Temp 98.2 F 12/05/18 11:31 Pulse 109 H 12/05/18 14:00 Resp 20 12/05/18 11:31 BP 95/50 12/05/18 11:31 Pulse Ox 94 12/05/18 11:31 - Physical Examination General: No Apparent Distress HEENT: Positive: PERRL, Normocephaly, Mucus Membranes Moist Neck: Positive: neck supple, trachea midline Cardiac: Positive: irregularly irregular, S1/S2 Lungs: Positive: Decreased Breath Sounds Neuro: Positive: Grossly Intact Abdomen: Negative: Tender Skin: Positive: Other (BLE chronic venous stasis skin changes noted). Negative: Wound Extremities: Present: +3 Edema (BLE), Other (LLE wound) - Labs and Meds CBC 12/05/18 Range/Units 04:27 WBC 8.0 (4.5-11.0) K/mm3 RBC 6.48 H (3.65-5.03) M/mm3 Hgb 17.1 H (11.8-15.2) gm/dl Hct 54.6 H (35.5-45.6) % Plt Count 164 (140-440) K/mm3 Lymph # 1.3 (1.2-5.4) K/mm3 Delta # 0.6 (0.0-0.8) K/mm3 Eos # 0.1 (0.0-0.4) K/mm3 Baso # 0.1 (0.0-0.1) K/mm3 Comprehensive Metabolic Panel 12/05/18 Range/Units 04:27 Sodium 140 (137-145) mmol/L Potassium 4.9 (3.6-5.0) mmol/L Chloride 92.7 L (98-107) mmol/L Carbon Dioxide 36 H (22-30) mmol/L BUN 53 H (9-20) mg/dL Creatinine 1.4 (0.8-1.5) mg/dL Glucose 148 H (75-100) mg/dL Calcium 9.0 (8.4-10.2) mg/dL - Imaging and Cardiology EKG: report reviewed, image reviewed Echo: report reviewed (11/2018: EF 60-65%, RV mod dilated, RA mild to mod dilated, mod pulm HTN with RVSP 67mmHg. 04/2016 showed EF 55-60%, abnormal diastolic function, mild LVH, LA mod dilated, RA mod dilated, RV mod dilated, mild MR, mod TR, severe pulm HTN with RVSP 97mmHg. ) - Telemetry EKG Rhythm: Atrial Fibrillation
[2018-12-05] MEDS: DUONEB *Not for PRN Use IH SCH ×2 (14:56→22:22)
[2018-12-06 06:36] LABS: Basophils % (Auto) 0.2 % (0.0-1.8); Eosinophils % (Auto) 0.3 % (0.0-4.3); Lymphocytes % (Auto) 8.6 % (13.4-35.0); Mean Corpuscular HGB Conc 30 % (32-34); Mean Corpuscular Volume 85 fl (84-94); Monocytes # (Auto) 1.3 K/mm3 (0.0-0.8); Monocytes % (Auto) 10.8 % (0.0-7.3); Platelet Count 142 K/mm3 (140-440); Red Cell Distribution Width 19.7 % (13.2-15.2)
[2018-12-06 06:38] LABS: Hematocrit 49.9 % (35.5-45.6); Mean Corpuscular Hemoglobin 25 pg (28-32)
[2018-12-06 07:01] LABS: Calcium 8.7 mg/dL (8.4-10.2)
[2018-12-06] MEDS: DUONEB *Not for PRN Use IH SCH ×2 (07:26→13:33)
[2018-12-06] MEDS: LASIX IV SCH (09:50)
[2018-12-06] MEDS: XARELTO PO SCH (09:51)
[2018-12-06] MEDS: DELTASONE PO SCH (09:51)
[2018-12-06] MEDS: ZAROXOLYN PO SCH (09:51)
[2018-12-06] MEDS: ALDACTONE PO SCH (09:51)
[2018-12-06] MEDS: BABY ASPIRIN PO SCH (09:51)
[2018-12-06] MEDS: LANOXIN PO SCH (09:52)
[2018-12-06] MEDS: COREG PO SCH (09:52)
[2018-12-06] MEDS: HumaLOG SUB-Q SCH (09:53)
[2018-12-06] MEDS: SODIUM CHLORIDE FLUSH SYRINGE 10 ML IV SCH (09:53)
--- NOTE | 2018-12-06 10:33 | Progress Note ---
Assessment and Plan Chronic kidney disease secondary to DM and HTN Anasacra secondary to CHF and CKD DM type II on insulin Hypertension Afib on Xarelto -will switch lasix to PO due to rising Cr since yesterday -Noted to have proteinuria, which is chronic and likely due to DM nephropathy, will request secondary GN work up as an outpatient -Continue on Sprinolactone 25 mg po daily -Continue on Metolazone 5 mg po daily -Strict I&O monitoring -Obtain daily weights -Renally dose medications -Avoid nephrotoxins -Renal diet -Continue to monitor renal function Subjective Date of service: 12/06/18 Principal diagnosis: CKD, CHF Interval history: feels better, ready to go home Objective - Vital Signs Vital signs: Vital Signs - 12hr 12/05/18 12/06/18 12/06/18 23:56 04:04 04:50 Temperature 98.3 F 97.9 F Pulse Rate 65 70 77 Pulse Rate [ Posterior Bilateral] Respiratory 18 18 Rate Respiratory Rate [Posterior Bilateral] Blood Pressure 104/49 Blood Pressure 109/60 [Right] O2 Sat by Pulse 90 94 Oximetry 12/06/18 12/06/18 12/06/18 07:27 07:53 09:51 Temperature 98.0 F Pulse Rate 71 72 Pulse Rate [ 69 Posterior Bilateral] Respiratory 20 Rate Respiratory 18 Rate [Posterior Bilateral] Blood Pressure 127/60 124/62 Blood Pressure [Right] O2 Sat by Pulse 93 93 Oximetry 12/06/18 09:52 Temperature Pulse Rate 72 Pulse Rate [ Posterior Bilateral] Respiratory Rate Respiratory Rate [Posterior Bilateral] Blood Pressure 124/74 Blood Pressure [Right] O2 Sat by Pulse Oximetry - General Appearance General appearance: well-developed, well-nourished, appears stated age EENT: ATNC, PERRL, mucous membranes moist Neck: no JVD, no carotid bruit Respiratory: Present: Clear to Ascultation. Absent: Rales, Ronchi Cardiology: regular, S1S2 Gastrointestinal: normoactive bowel sounds, no tenderness, no distended Integumentary: no rash, warm and dry Neurologic: no focal deficit, no asterixis, alert and oriented x3 Musculoskeletal: other (trace ptiitng edema in BLE) Psychiatric: mood/affect appropriate, cooperative - Lab 12/06/18 05:34 12/06/18 05:34 Most recent lab results Calcium 8.7 mg/dL (8.4-10.2) 12/06/18 05:34 Magnesium 2.10 mg/dL (1.7-2.3) 12/06/18 05:34 Medications & Allergies - Medications Allergies/Adverse Reactions: Allergies Penicillins Allergy (Verified 01/16/17 08:30) Rash Home Medications: Home Medications Medication Instructions Recorded Confirmed Last Taken Type AtorvaSTATin [Lipitor] 10 mg PO HS 01/16/17 12/02/18 01/15/17 History Rivaroxaban [Xarelto] 20 mg PO QDAY 01/16/17 12/02/18 01/15/17 History Carvedilol [Coreg] 3.125 mg PO BID #60 tablet 03/08/17 12/02/18 Unknown Rx Digoxin [Digox] 250 mcg PO DAILY 12/02/18 12/02/18 Unknown History Insulin Detemir [Levemir VIAL] 20 unit SQ QHS 12/02/18 12/02/18 Unknown History Ipratropium/Albuterol Sulfate 1 spray IH QID 12/02/18 12/02/18 Unknown History [Combivent Respimat] Lispro Insulin [Humalog] 8 unit SQ AC 12/02/18 12/02/18 Unknown History Rivaroxaban [Xarelto] 20 mg PO QDAY 12/02/18 12/02/18 Unknown History Spironolactone [Aldactone] 25 mg PO QDAY 12/02/18 12/02/18 Unknown History metOLazone [Metolazone] 5 mg PO DAILY 12/02/18 12/02/18 Unknown History predniSONE [Deltasone] 20 mg PO QDAY 12/02/18 12/02/18 Unknown History Aspirin EC [Aspirin Enteric Coated 81 mg PO QDAY #30 tablet. 12/06/18 Unknown Rx TAB] Furosemide [Lasix TAB] 40 mg PO BID #60 tablet 12/06/18 Unknown Rx Active Medications: Generic Name Dose Route Start Last Admin Trade Name Freq PRN Reason Stop Dose Admin Acetaminophen 650 mg 12/02/18 13:39 12/05/18 17:28 Tylenol PO 650 mg Q4H PRN Administration Pain MILD(1-3)/Fever >100.5/RIBERA Albuterol 2.5 mg 12/02/18 13:39 Proventil IH Q4HRT PRN Shortness Of Breath Albuterol/Ipratropium 1 ampul 12/05/18 14:00 12/06/18 07:26 Duoneb *Not For Prn Use* IH 1 ampul TIDRT EDELMIRA Administration Aspirin 81 mg 12/04/18 10:00 12/06/18 09:51 Baby Aspirin PO 81 mg QDAY EDELMIRA Administration Atorvastatin Calcium 10 mg 12/02/18 22:00 12/05/18 22:26 Lipitor PO 10 mg HS EDELMIRA Administration Carvedilol 3.125 mg 12/02/18 22:00 12/06/18 09:52 Coreg PO 3.125 mg BID EDELMIRA Administration Dextrose 50 ml 12/02/18 13:52 D50w (25gm) Syringe IV PRN PRN Hypoglycemia Digoxin 0.25 mg 12/03/18 10:00 12/06/18 09:52 Lanoxin PO 0.25 mg DAILY EDELMIRA Administration Furosemide 40 mg 12/06/18 18:00 Lasix PO 0600,1800 [facility] Insulin Human Lispro 0 unit 12/02/18 16:30 12/06/18 09:53 Humalog SUB-Q Not Given ACHS [facility] Protocol Metolazone 5 mg 12/03/18 10:00 12/06/18 09:51 Zaroxolyn PO 5 mg DAILY [facility] Administration Ondansetron HCl 4 mg 12/02/18 13:39 Zofran IV Q8H PRN Nausea And Vomiting Prednisone 20 mg 12/03/18 10:00 12/06/18 09:51 Deltasone PO 20 mg QDAY [facility] Administration Rivaroxaban 20 mg 12/03/18 10:00 12/06/18 09:51 Xarelto PO 20 mg QDAY [facility] Administration Protocol Senna/Docusate Sodium 2 tab 12/02/18 14:27 Senokot S PO Q12H PRN Laxative Effect Sodium Chloride 10 ml 12/02/18 22:00 12/06/18 09:53 Sodium Chloride Flush Syringe 10 Ml IV 10 ml BID EDELMIRA Administration Sodium Chloride 10 ml 12/02/18 13:39 Sodium Chloride Flush Syringe 10 Ml IV PRN PRN LINE FLUSH Spironolactone 25 mg 12/03/18 10:00 12/06/18 09:51 Aldactone PO 25 mg QDAY EDELMIRA Administration
--- NOTE | 2018-12-06 11:03 | Vascular Lab Report ---
PROCEDURE: VL ARTERIAL DUPLEX LE LT TECHNIQUE: Arizmendi scale, color and pulsed Doppler ultrasound with color flow and spectral analysis eval uation of left lower extremity arteries were performed. HISTORY: left ankle ulcer COMPARISONS: None currently available. 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 Biphasic and triphasic flow. LEFT EXTREMITY: EIA, RETAIL MANAGEMENT KEYHOLDER, proximal SFA, DFA, mid SFA, distal SFA, popliteal, [employer]ST[employer] POLISHER OPERATOR, YULISA, and DPA velocities in cm/sec: 170, 160, 141, 66, 106, 93, 109, 67, 110, and 90. Biphasic and triphasic flow throughout. Mild to mod erate disease below the knee. IMPRESSION: * No ultrasound evidence for hemodynamically significant stenosis. This document is electronically signed by Price Hay MD., December 06 2018 11:01:12 AM ET
--- NOTE | 2018-12-06 11:07 | Progress Note ---
Assessment and Plan clinically vastly improved no complaints wean O2 - may dc if ok on ra. f/u with dr. arriaza discussed the importance of medication and diet compliance at length Subjective Date of service: 12/06/18 Principal diagnosis: CKD, CHF Interval history: feels much better Objective Vital Signs Temp Pulse Pulse Resp Resp BP BP 12/06/18 09:52 72 124/74 12/06/18 09:51 72 124/62 12/06/18 07:53 98.0 F 71 20 127/60 12/06/18 07:27 69 18 12/06/18 04:50 77 12/06/18 04:04 97.9 F 70 18 104/49 12/05/18 23:56 98.3 F 65 18 109/60 12/05/18 22:26 65 12/05/18 22:23 76 18 12/05/18 22:00 12/05/18 20:00 98.2 F 65 18 95/57 12/05/18 19:30 72 12/05/18 16:06 98.0 F 72 18 126/63 12/05/18 14:58 107 H 18 12/05/18 14:40 109 H 18 12/05/18 14:00 109 H 12/05/18 12:56 82 102/52 12/05/18 11:31 98.2 F 79 20 95/50 12/05/18 11:12 92 H 18 Pulse Ox 12/06/18 09:52 12/06/18 09:51 12/06/18 07:53 93 12/06/18 07:27 93 12/06/18 04:50 12/06/18 04:04 94 12/05/18 23:56 90 12/05/18 22:26 12/05/18 22:23 12/05/18 22:00 91 12/05/18 20:00 88 12/05/18 19:30 12/05/18 16:06 95 12/05/18 14:58 12/05/18 14:40 12/05/18 14:00 12/05/18 12:56 85 12/05/18 11:31 94 12/05/18 11:12 - Physical Examination General: No Apparent Distress HEENT: Positive: PERRL, Normocephaly, Mucus Membranes Moist Neck: Positive: neck supple, trachea midline Neuro: Positive: Grossly Intact Abdomen: Negative: Tender Skin: Positive: Other (BLE chronic venous stasis skin changes noted). Negative: Wound Extremities: Present: +3 Edema (BLE), Other (LLE wound) - Labs and Meds CBC 12/06/18 Range/Units 05:34 WBC 12.1 H (4.5-11.0) K/mm3 RBC 5.90 H (3.65-5.03) M/mm3 Hgb 15.0 (11.8-15.2) gm/dl Hct 49.9 H (35.5-45.6) % Plt Count 142 (140-440) K/mm3 Lymph # 1.0 L (1.2-5.4) K/mm3 Hardy # 1.3 H (0.0-0.8) K/mm3 Eos # 0.0 (0.0-0.4) K/mm3 Baso # 0.0 (0.0-0.1) K/mm3 Comprehensive Metabolic Panel 12/06/18 Range/Units 05:34 Sodium 140 (137-145) mmol/L Potassium 4.9 (3.6-5.0) mmol/L Chloride 93.9 L (98-107) mmol/L Carbon Dioxide 35 H (22-30) mmol/L BUN 57 H (9-20) mg/dL Creatinine 1.8 H (0.8-1.5) mg/dL Glucose 142 H (75-100) mg/dL Calcium 8.7 (8.4-10.2) mg/dL - Imaging and Cardiology EKG: report reviewed, image reviewed Echo: report reviewed (11/2018: EF 60-65%, RV mod dilated, RA mild to mod dilated, mod pulm HTN with RVSP 67mmHg. 04/2016 showed EF 55-60%, abnormal diastolic function, mild LVH, LA mod dilated, RA mod dilated, RV mod dilated, mild MR, mod TR, severe pulm HTN with RVSP 97mmHg. )
[2018-12-06 11:46] VITALS: BP 105/58
--- NOTE | 2018-12-06 12:56 | Discharge Summary ---
Providers - Providers Date of Admission: 12/02/18 13:39 Date of discharge: 12/06/18 Attending physician: MIGUE KLEIN 12/02/18 13:46 Consult to Physician [CONS] Routine Comment: Consulting Provider: CRISSY MARQUEZ Physician Instructions: Reason For Exam: chf 12/02/18 14:22 Consult to Physician [CONS] Routine Comment: Consulting Provider: MARSHALL TORRES Physician Instructions: Reason For Exam: renal failure 12/04/18 09:22 Consult to Wound/ET Nurse [CONS] Routine Reason For Exam: wound eval Primary care physician: YUKI DE LA TORRE Hospitalization Condition: Fair Disposition: DC-01 TO HOME OR SELFCARE Core Measure Documentation - Palliative Care Palliative Care/ Comfort Measures: Not Applicable - Core Measures Any of the following diagnoses?: heart failure - Heart Failure Discharge Requirements JAQUAN/ARB for LVSD if EF <40%: Not Applicable Beta reymundo at discharge: Yes Exam - Constitutional Vitals: Temp Pulse Resp BP Pulse Ox 98.0 F 88 20 105/58 89 12/06/18 11:44 12/06/18 11:44 12/06/18 11:44 12/06/18 11:44 12/06/18 11:44 Plan Activity: advance as tolerated Diet: low fat, low cholesterol, low salt, renal Durable Medical Equipment Needed Upon Discharge: Oxygen Additional Instructions: 1.Follow up with PCP in 1 week. 2.Follow up with Dr. Fox, cardiology in 1 week. 3.Follow up with Dr. Torres, nephrology in 1 week. 4.Continue home Oxygen at 2l/min NC. 5.Follow up with Dr. Mg, wound clinic in 3-5 days Follow up with: PRIMARY CARE, [Referring] - 3-5 Days Prescriptions: Aspirin EC [Aspirin Enteric Coated TAB] 81 mg PO QDAY #30 tablet. Furosemide [Lasix TAB] 40 mg PO BID #60 tablet
[2018-12-06] MEDS ORDERED: LASIX PO SCH (18:00)
== END 2018-12-06 16:15 | disposition home or self-care (01) | DRG 682 ==
LOC: ED 11:26 → 4A 13:39
PROVIDERS: ADMIT Internal Medicine; ATTEND Internal Medicine
DX: N17.0 Acute kidney failure with tubular necrosis (principal); J96.20 Acute and chronic respiratory failure, unspecified whether with hypoxia or hypercapnia; I50.43 Acute on chronic combined systolic (congestive) and diastolic (congestive) heart failure; Z68.41 Body mass index [BMI] 40.0-44.9, adult; F17.213 Nicotine dependence, cigarettes, with withdrawal; I13.0 Hypertensive heart and chronic kidney disease with heart failure and stage 1 through stage 4 chronic kidney disease, or unspecified chronic kidney disease; L97.322 Non-pressure chronic ulcer of left ankle with fat layer exposed; E11.9 Type 2 diabetes mellitus without complications; I48.91 Unspecified atrial fibrillation; M19.90 Unspecified osteoarthritis, unspecified site; J44.9 Chronic obstructive pulmonary disease, unspecified; Z99.81 Dependence on supplemental oxygen; Z79.01 Long term (current) use of anticoagulants; E66.01 Morbid (severe) obesity due to excess calories; Z71.3 Dietary counseling and surveillance; Z79.4 Long term (current) use of insulin; K59.00 Constipation, unspecified; Z82.49 Family history of ischemic heart disease and other diseases of the circulatory system; I27.20 Pulmonary hypertension, unspecified; E11.22 Type 2 diabetes mellitus with diabetic chronic kidney disease; N18.9 Chronic kidney disease, unspecified
CPT/HCPCS: 36415; 71046; 80048; 80053; 80162; 81001; 82962; 83036; 83735; 83880; 84439; 84443; 84484; 85025; 85610; 93005; 93010; 93306; 94640; 94760; 96374; 99291; 99406; G0378; A9270-GY; J1815; J1940; J7512